=== PATIENT | female | born 1965 | race Caucasian/White ===

== ENCOUNTER 2020-08-28 14:00 | Outpatient (CLI) | payer OTHER, SELFPAY ==
--- NOTE | ~2020-08-28 | NM_ITS ---
EXAMINATION: NM thyroid scan w uptake DATE: 08/29/2020 15:23 INDICATION: Thyrotoxicosis. COMPARISON: Cervical spine MRI 12/28/2018 TECHNIQUE: 0.341 mCi I-123 was administered orally. Scintigraphic images of the thyroid gland were o btained at 24 hours. Thyroid uptake was calculated by the technologist. FINDINGS: The thyroid uptake is 18% (normal 10-30%), with the right lobe measuring 13% uptake and the left 6%. Relatively increased activity in right thyroid lobe correlates with a nodule by MRI, likely benign. IMPRESSION: 1. Normal 24-hour iodine uptake. 2. Hyperactive right thyroid nodule, likely benign. Reviewed, dictated and finalized at location A. [employer]
== END 2020-08-28 14:01 | disposition home or self-care (01) ==
PROVIDERS: PCP Internal Medicine; Visit Provider Internal Medicine
DX: E05.90 Thyrotoxicosis, unspecified without thyrotoxic crisis or storm (principal)
CPT/HCPCS: 78014; A9516

== ENCOUNTER → 2020-08-29 09:01 | Outpatient (CLI) | payer OTHER, SELFPAY ==
--- NOTE | ~2020-08-29 | DEXA_ITS ---
Bone Density Report Name: Ca Jaramillo Age: 54 Sex: Female Ethnicity: White Date of : 1965 Indication: postmenopausal; screening for osteoporosis; height loss; hysterectomy; Referring Provider: Jose Aggarwal Study: Bone densitometry was performed. Exam Date: August 29, 2020 Accession number: [id number] Bone Density: Region BMD T-score Z-score Classification AP Spine (L1-L4) 0.704 -3.1 -2.0 Osteoporosis Femoral Neck (Left) 0.686 -1.5 -0.4 Osteopenia Total Hip (Left) 0.901 -0.3 0.4 Normal Femoral Neck (Right) 0.670 -1.6 -0.5 Osteopenia Total Hip (Right) 0.890 -0.4 0.3 Normal Total Hip Mean 0.896 -0.4 0.4 Normal World Health Organization criteria for BMD impression classify patients as: Normal (T-score at or above -1.0), Osteopenia (T-score between -1.0 and -2.5), or Osteoporosis (T-score at or below -2.5). 10-year Fracture Risk: FRAX not reported because: Some T-score for Spine Total or Hip Total or Femoral Neck at or below -2.5 Clinical Information Provided by Patient: Has the following medical conditions: Hysterectomy Patient maximum height was 63 Menopause Age: 27 No regular weight bearing exercise Drinks caffeinated beverages Onset of menses at age 13 Number of children 0 Impression: The patient has osteoporosis, based on the Total Spine T-score. Discussion: HIGH RISK OF FRACTURE. BONE DENSITY IS UNDESIRABLY LOW AT ONE OR MORE SKELETAL SITES, CONSISTENT WITH OSTEOPOROSIS. ALSO, BONE DENSITY IS LOWER THAN EXPECTED FOR AGE AND SEX AT ONE OR MORE SKELETAL SITES; RECOMMEND A DILIGENT SEARCH FOR SECONDARY CAUSES OF BONE LOSS. This patient's lowest T-score meets the World Health Organization's (WHO) criteria for osteoporosis at one or more sites (T-score -2.5 or below). In untreated patients, the risk of osteoporotic fracture increases approximately two-fold for each 1.0 SD decrease in T-score. Low bone density is not the only risk factor for fracture; also consider factors such as patient's age, frailty or poor health, risk of falling, risk of injury, previous osteoporotic fracture, family history of osteoporosis, cigarette smoking, low body weight, etc. Not everyone with low bone mineral density has osteoporosis; osteomalacia and other metabolic bone disorders should also be considered. Patients who have osteoporosis should be evaluated for specific diseases and conditions (secondary causes) that may cause or contribute to bone loss. The [place] [employer]ocrinologists (AACE) and National Osteoporosis Foundation (NOF) recommend pharmacologic intervention for all postmenopausal women whose T-score is in this range. Also, this patient's bone mineral density is below the range considered normal for healthy age-, sex-, and race-matched controls at least one site (Z-score
== END ==
PROVIDERS: PCP Internal Medicine; Visit Provider Pain Medicine Interventional Pain Medicine
DX: Z78.0 Asymptomatic menopausal state (principal); M54.12 Radiculopathy, cervical region; G89.4 Chronic pain syndrome; M81.0 Age-related osteoporosis without current pathological fracture; M85.852 Other specified disorders of bone density and structure, left thigh; M85.851 Other specified disorders of bone density and structure, right thigh
CPT/HCPCS: 77080

== ENCOUNTER 2020-08-30 10:44 | Outpatient (CLI) | payer OTHER, SELFPAY ==
--- NOTE | ~2020-08-30 | US_ITS ---
EXAMINATION: US thyroid EXAM DATE: 08/30/2020 11:43 INDICATION: THYROTOXOCOSIS E05.90 - Thyrotoxicosis, unspecified without thyrotoxic crisis. TECHNIQUE: Multiple grayscale and Doppler images of the thyroid were obtained (by a technologist who performed the scan) and subsequently reviewed. Individual nodules and recommendations may be reporte d in accordance with TI-RADS system as designated by the 2017 ACR White Paper TI-RADS committee. The re is no prior study for comparison. FINDINGS: The right thyroid lobe measures 4.1 x 2.4 x 2.2 cm, the left measuring 3.8 x 1.4 x 1.1 cm. Mildly het erogeneous thyroid echogenicity. There are several thyroid nodules, subcentimeter on the left and not likely clinically significant. O n the right there is a nodule measuring 2.7 x 2.2 x 2.0 cm, mixed cystic and solid (1 point), isoecho ic (1 point), wider than tall, smooth margin, without echogenic foci, category TR2 for this nodule. IMPRESSION: 1. Thyroid nodules not likely clinically significant. Reviewed, dictated and finalized at location B. [employer] NEEDS TUTOR
== END 2020-08-30 10:45 | disposition home or self-care (01) ==
PROVIDERS: PCP Internal Medicine; Visit Provider Internal Medicine
DX: E05.90 Thyrotoxicosis, unspecified without thyrotoxic crisis or storm (principal)
CPT/HCPCS: 76536

== ENCOUNTER 2020-10-13 08:34 | Emergency (ER) | payer OTHER, SELFPAY ==
--- NOTE | 2020-10-15 14:55 | ED.SKABFB ---
HPI - Skin/Abscess/Foreign Bdy General Stated complaint: sore on R/leg Time Seen by Provider: 10/13/20 16:50 Source: patient Mode of arrival: ambulatory Limitations: no limitations History of Present Illness HPI narrative: Ca Jaramillo is a 54 yo female w PMH of HTN, osteoporosis, chronic pain and anxiety, spinal tumor, who has rash on anterior thigh, mild tenderness not itching, no history of MRSA Related Data Home Medications Medication Instructions Recorded Confirmed baclofen 20 mg tablet 20 mg PO DAILY tablet 02/05/20 09/17/20 hydrocodone 10 mg-acetaminophen 1 tablet PO BID tablet 02/05/20 09/17/20 325 mg tablet oxycodone-acetaminophen 10 mg-325 tablet PO ONCE tablet 02/05/20 09/17/20 mg tablet Allergies Allergy/AdvReac Type Severity Reaction Status Date / Time gabapentin Allergy Intermediate Hives Verified 09/17/20 13:40 Penicillins Allergy Intermediate Hives Verified 09/17/20 13:40 Sulfa (Sulfonamide Allergy Intermediate Hives Verified 09/17/20 13:40 Antibiotics) diphenhydramine Allergy Mild IV Verified 09/17/20 13:40 RESTLESS, PO OK prochlorperazine Allergy Mild IV Verified 09/17/20 13:40 RESTLESS, PO OK promethazine Allergy Mild IV Verified 09/17/20 13:40 RESTLESS, PO OK Quinolones Allergy Mild Hives Verified 09/17/20 13:40 prabotulinumtoxinA-xvfs AdvReac Severe anger Verified 09/17/20 13:40 ciprofloxacin AdvReac Unknown Nausea Verified 09/17/20 13:40 Review of Systems Review of Systems: Narrative: CONSTITUTIONAL: Denies fever, chills, sweats. EYES: Denies visual changes, redness, discharge. ENT: Denies rhinorrhea, congestion, sore throat, otalgia. CARDIOVASCULAR: Denies chest pain, palpitations, edema. RESPIRATORY: Denies dyspnea, wheezing, cough GASTROINTESTINAL: Denies abdominal pain, nausea, vomiting, diarrhea. GENITOURINARY: Denies dysuria, hematuria, abnormal discharge SKIN: Denies rash or itching. Rash on right anterior thigh NEUROLOGIC: Denies numbness, or focal weakness. PSYCHIATRIC: Denies anxiety or depression. [facility] Past Medical History Medical History Ectopic FH: cholecystectomy Smoke hypersensitivity Surgical History Surgical History H/O laparoscopy H/O: hysterectomy Family History Family History Other Diabetes mellitus Family history of cardiovascular disease Family history of osteoarthritis Hypertension Social History Social History Smoking status: Never smoker Second hand tobacco smoke exposure: No Alcohol intake: never Comments At time of signature, I agree with nursing past medical, surgical, social and family history. There is no relevant family history pertinent to the presenting complaint. Exam Narrative: Exam Narrative: GENERAL: This is a well-nourished, well-developed patient, in mild distress. HEAD: normocephalic, atraumatic. EYES: Sclera clear/white. Vision is grossly intact. EARS: External ears normal,. Hearing grossly intact. NOSE: External nose normal without nasal discharge, nares without redness, no rhinorrhea. THROAT: Mucous membranes moist, NECK: Neck supple, CARDIOVASCULAR: Regular rate and rhythm without murmurs, gallops, or rubs. RESPIRATORY: Clear to auscultation. Breath sounds equal bilaterally. No wheezes, rales, or rhonchi. GASTROINTESTINAL: Abdomen soft, non-tender, SKIN: warm, intact with red rash with areas of tender erythema on R anterior thigh NEURO: awake, alert, and oriented to person, place and time. There were no obvious focal neurologic abnormalities. Steady gait EXTREMITIES: Normal range of motion. BACK: Nontender without deformity Course Course Emergency Course: Rash to right thigh Appears to be MRSA discussed infectivity and treatment w
== END 2020-10-13 17:00 | disposition home or self-care (01) ==
LOC: EXPTROY 11-07 09:43
PROVIDERS: Emergency Provider Nurse Practitioner
DX: R21 Rash and other nonspecific skin eruption (principal); I10 Essential (primary) hypertension; M81.0 Age-related osteoporosis without current pathological fracture
CPT/HCPCS: 99213; G0463

== ENCOUNTER → 2020-11-28 14:56 | Outpatient (CLI) | payer OTHER, SELFPAY ==
--- NOTE | ~2020-11-28 | XR_ITS ---
EXAMINATION: XR lumbar spine 2-3V EXAM DATE: 11/28/2020 15:28 INDICATION: Radiculopathy. TECHNIQUE: Lumber spine frontal, lateral, lateral L5-S1 projections for interpretation. Comparison is made to prior examination from 01/04/2018. FINDINGS: Mild lumbar levoscoliosis. There is mild upper lumbar disc disease L1-2 and L2-3. The vert ebral body and disc heights are otherwise well maintained. There is mild to moderate lumbar facet art hropathy. Sacrum, sacroiliac joints, sacral arcuate lines are intact. Paraspinal soft tissue is unrem arkable. IMPRESSION: 1. Mild upper lumbar disc disease. 2. Mild to moderate facet arthropathy. 3. Mild levoscoliosis. Reviewed, dictated and finalized at location B. D ADOLESCENT PSYCHIATRIST
--- NOTE | ~2020-11-28 | XR_ITS ---
EXAMINATION: XR cervical spine 4-5V EXAM DATE: 11/28/2020 15:28 INDICATION: Radiculopathy. TECHNIQUE: Cervical spine frontal, lateral, lateral swimmers, and open-mouth odontoid projections. C omparison is made to prior examination from 01/04/2018. FINDINGS: There is interbody device C5-6 without subsidence. There is mild to moderate disc disease at the cervical levels above this. Overall mild to moderate cervical arthropathy. The odontoid proces s is intact. The lateral masses of C1 line up with C2. Prevertebral soft tissue and pre-dens space a re within normal limits. Lung apices are clear. IMPRESSION: Mild to moderate cervical spondylosis. Reviewed, dictated and finalized at location B. NS SERVICE CONDUCTOR
--- NOTE | ~2020-11-28 | XR_ITS ---
EXAMINATION: XR thoracic spine 3V EXAM DATE: 11/28/2020 15:28 INDICATION: Radiculopathy. TECHNIQUE: Frontal and lateral projections of the thoracic spine as well as lateral swimmers projecti on of the upper thoracic spine for interpretation. There is no prior study for comparison. FINDINGS: Mild mid thoracic disc disease. The vertebral bodies are aligned in the AP dimension. Ther e are no bony erosions identified. Paraspinal soft tissue is unremarkable. IMPRESSION: Mild mid thoracic spondylosis. Reviewed, dictated and finalized at location B. H RIB GRADER
== END ==
PROVIDERS: PCP Internal Medicine; Visit Provider Family Medicine
DX: M51.36 Other intervertebral disc degeneration, lumbar region (principal); M47.22 Other spondylosis with radiculopathy, cervical region; M47.24 Other spondylosis with radiculopathy, thoracic region
CPT/HCPCS: 72050; 72072; 72100

== ENCOUNTER 2021-04-14 11:08 | Emergency (ER) | payer OTHER, SELFPAY ==
[2021-04-14 11:24] VITALS: BP 98/71; PULSE 92; RESP 18; TEMP 36.1; O2SAT 97
--- NOTE | 2021-04-14 12:06 | ED.FEMALEGU ---
HPI - Female Genitourinary General Chief complaint: Urogenital-Female Stated complaint: UTI Time Seen by Provider: 04/14/21 11:55 Source: patient Mode of arrival: ambulatory Limitations: no limitations History of Present Illness HPI Narrative: Ca Jaramillo is a 59-year-old female with a PMH of chronic back pain, asthma, osteoporosis, blood pressure, depression, who comes with urinary frequency and dysuria and pain that started on Wednesday night and Wednesday morning and is not improved. Last night she said she was uncomfortable trying to sleep Related Data Home Medications Medication Instructions Recorded Confirmed hydrocodone 10 mg-acetaminophen 1 tablet PO BID tablet 02/05/20 04/14/21 325 mg tablet oxycodone-acetaminophen 10 mg-325 tablet PO ONCE tablet 02/05/20 02/26/21 mg tablet albuterol 90 mcg/actuation aerosol 90 mcg INHALATION DAILY 02/26/21 04/14/21 inhaler baclofen 20 mg tablet 20 mg PO TID PRN tablet 02/26/21 04/14/21 clobetasol 0.05 % topical cream 1 applic TOPICAL BID PRN 02/26/21 04/14/21 Allergies Allergy/AdvReac Type Severity Reaction Status Date / Time gabapentin Allergy Intermediate Hives Verified 09/17/20 13:40 Penicillins Allergy Intermediate Hives Verified 09/17/20 13:40 Sulfa (Sulfonamide Allergy Intermediate Hives Verified 09/17/20 13:40 Antibiotics) diphenhydramine Allergy Mild IV Verified 09/17/20 13:40 RESTLESS, PO OK prochlorperazine Allergy Mild IV Verified 09/17/20 13:40 RESTLESS, PO OK promethazine Allergy Mild IV Verified 09/17/20 13:40 RESTLESS, PO OK Quinolones Allergy Mild Hives Verified 09/17/20 13:40 pregabalin [From Lyrica] Allergy Mood Verified 02/26/21 08:54 Changes prabotulinumtoxinA-xvfs AdvReac Severe anger Verified 09/17/20 13:40 ciprofloxacin AdvReac Unknown Nausea Verified 09/17/20 13:40 Review of Systems Review of Systems: Narrative: CONSTITUTIONAL: Denies fever, chills, sweats. EYES: Denies visual changes, redness, discharge. ENT: Denies rhinorrhea, congestion, sore throat, otalgia. CARDIOVASCULAR: Denies chest pain, palpitations, edema. RESPIRATORY: Denies dyspnea, wheezing, cough GASTROINTESTINAL: Denies abdominal pain, nausea, vomiting, diarrhea. GENITOURINARY: Has dysuria, hematuria, abnormal discharge SKIN: Denies rash or itching. NEUROLOGIC: Denies numbness, or focal weakness. PSYCHIATRIC: Denies anxiety or depression. [facility] Past Medical History Medical History Age related osteoporosis Arthritis Chronic pain Ectopic FH: cholecystectomy Hypertension Migraine Smoke hypersensitivity Thyroid disorder Tumor Schwanoma Removed Surgical History Surgical History H/O laparoscopy H/O myomectomy H/O oophorectomy H/O: hysterectomy History of appendectomy History of back surgery Cervical Decompression 03/2012 History of laminectomy 10/2011 Family History Family History (Updated 02/26/21 @ 08:41 by Patti Moon, [facility]) Father Diabetes mellitus Heart disease Mother Acute myocardial infarction Heart disease Sibling Asthma Hypertension Grandparent Diabetes mellitus Other Family history of osteoarthritis Social History Social History Smoking status: Never smoker Second hand tobacco smoke exposure: No Alcohol intake: never Gender identity (if verbalized by the patient): Female Exam Narrative: Exam Narrative: GENERAL: This is a well-nourished, well-developed patient, in mild distress. HEAD: normocephalic, atraumatic. EYES: PERRL. Sclera clear/white. Vision is grossly intact. EARS: External ears normal, Hearing grossly intact. NOSE: External nose normal without nasal discharge, nares without redness, no rhinorrhea. THROAT: Mucous membranes moist, NECK: Neck supple, CARDIOVASCULAR: Regular rate
== END 2021-04-14 12:18 | disposition home or self-care (01) ==
PROVIDERS: Emergency Provider Nurse Practitioner; PCP Internal Medicine
DX: N30.00 Acute cystitis without hematuria (principal); M19.90 Unspecified osteoarthritis, unspecified site; I10 Essential (primary) hypertension
CPT/HCPCS: 81003; 87077; 87086; 87186; 99213; G0463

== ENCOUNTER → 2021-06-23 12:58 | Outpatient (CLI) | payer OTHER, SELFPAY ==
--- NOTE | ~2021-06-23 | US_ITS ---
EXAMINATION: US soft tissue LE DATE: 06/23/2021 13:20 INDICATION: Left upper thigh mass. TECHNIQUE: Multiple grayscale and Doppler ultrasound images of the left thigh were obtained. COMPARISON: None FINDINGS: There are 2 subcutaneous masses in the left upper thigh measuring 1.1 x 0.8 x 1.1 cm and 2. 3 x 1.0 x 2.5 cm. The masses are isoechoic to normal subcutaneous fat with echotexture similar to sub cutaneous fat and demonstrate incomplete hypoechoic rims. IMPRESSION: 1. Two subcutaneous masses in the left upper thigh with the larger measuring 2.5 cm, likely lipomas. Reviewed, dictated and finalized at location A. IMPRESSION: 1. Two subcutaneous masses in the left upper thigh with the larger measuring 2. 5 cm, likely lipomas.
== END ==
PROVIDERS: PCP Internal Medicine; Visit Provider Nurse Practitioner
DX: R22.42 Localized swelling, mass and lump, left lower limb (principal)
CPT/HCPCS: 76882

== ENCOUNTER 2021-08-04 00:03 | Day surgery (SDC) | payer OTHER, SELFPAY ==
[2021-07-18 14:00] VITALS: BMI 35.6
[2021-08-04 06:58] VITALS: BMI 36.2
[2021-08-04] MEDS: LACTATED RINGERS 1,000 ML 150 ML IV CONT (07:36)
--- NOTE | 2021-08-04 07:37 | WPDANESEPPF ---
Anes - Initial Pre Proc Eval Procedure: Operation Date: 08/04/21 08:00 Proposed Procedures p Esophagogastroduodenoscopy & Screening Colonoscopy - Dirk Vazquez MD Date/Time: 08/04/21 07:37 Surgeon: Dirk Vazquez MD Pre Op Diagnosis: hall's esophagus, hx of colon polyps Patient Data Age: 55 Gender: F Height: 1.57 m Weight: 89.9 kg Allergies Allergy/AdvReac Type Severity Reaction Status Date / Time gabapentin Allergy Intermediate Hives Verified 08/04/21 06:55 Penicillins Allergy Intermediate Hives Verified 08/04/21 06:55 Sulfa (Sulfonamide Allergy Intermediate Hives Verified 08/04/21 06:55 Antibiotics) diphenhydramine Allergy Mild IV Verified 08/04/21 06:55 RESTLESS, PO OK prochlorperazine Allergy Mild IV Verified 08/04/21 06:55 RESTLESS, PO OK promethazine Allergy Mild IV Verified 08/04/21 06:55 RESTLESS, PO OK Quinolones Allergy Mild Hives Verified 08/04/21 06:55 pregabalin [From Lyrica] Allergy Mood Verified 08/04/21 06:55 Changes prabotulinumtoxinA-xvfs AdvReac Severe anger Verified 08/04/21 06:55 ciprofloxacin AdvReac Unknown Nausea Verified 08/04/21 06:55 Home Medications Medication Instructions Recorded Confirmed Type diclofenac sodium 1 % topical gel 2 gm TOPICAL QID #100 gm 09/20/19 07/18/21 Rx hydrocodone 10 mg-acetaminophen 1 tablet PO BID tablet 02/05/20 07/18/21 History 325 mg tablet oxycodone-acetaminophen 10 mg-325 1 tablet PO ONCE tablet 02/05/20 07/18/21 History mg tablet montelukast 10 mg tablet 10 mg PO DAILY 90 Days #90 tablet 05/02/20 07/18/21 Rx ondansetron HCl 8 mg tablet 8 mg PO Q12H #180 tablet 12/28/20 07/18/21 Rx albuterol 90 mcg/actuation aerosol 90 mcg INHALATION DAILY 02/26/21 07/18/21 History inhaler clobetasol 0.05 % topical cream 1 applic TOPICAL BID PRN 02/26/21 07/18/21 History alendronate 70 mg tablet 70 mg PO WEEKLY 90 Days #13 tablet 03/13/21 07/18/21 Rx carvedilol 25 mg tablet 25 mg PO Q12H #180 tablet 03/13/21 07/18/21 Rx duloxetine 20 mg capsule,delayed 40 mg PO DAILY #180 cap 03/13/21 07/18/21 Rx release losartan 100 mg tablet 100 mg PO DAILY #90 tablet 03/13/21 07/18/21 Rx rosuvastatin 20 mg tablet 20 mg PO DAILY #90 tablet 03/13/21 07/18/21 Rx phenazopyridine [Pyridium] 200 mg PO TID PRN #6 tablet 04/14/21 07/18/21 Rx clonidine 0.1 mg/24 hr weekly See Rx Instructions .ROUTE 05/12/21 07/18/21 Rx transdermal patch .COMPLEX #12 patch mupirocin 2 % topical ointment 1 applic TOPICAL BID #30 g 06/16/21 07/18/21 Rx hydrochlorothiazide 25 mg tablet 25 mg PO DAILY #90 tablet 07/07/21 07/18/21 Rx dicyclomine 10 mg capsule See Rx Instructions .ROUTE 07/09/21 07/18/21 Rx .COMPLEX #90 cap baclofen 10 mg PO TID PRN 07/18/21 07/18/21 History cholecalciferol (vitamin D3) 250 mcg PO WEEKLY 07/18/21 07/18/21 History Patient hx anesthesia problems: none Family hx anesthesia problems: none Results Review: All pre-operative results and documents have been reviewed as part of the pre-operative evaluation. [facility] Past Medical History Medical History Age related osteoporosis Arthritis Chronic pain Ectopic FH: cholecystectomy Hypertension Migraine Smoke hypersensitivity Thyroid disorder Tumor Schwanoma Removed Surgical History Surgical History H/O laparoscopy H/O myomectomy H/O oophorectomy H/O: hysterectomy History of appendectomy History of back surgery Cervical Decompression 03/2012 History of laminectomy 10/2011 Family History Family History Father Diabetes mellitus Heart disease Mother Acute myocardial infarction Heart disease Sibling Asthma Hypertension Grandparent Diabetes mellitus Other Family history of osteoarthritis Social History Social History (Reviewed 08/04/21 @ 07:
--- NOTE | 2021-08-04 07:58 | PM.HPGS ---
History of Present Illness History of Present Illness Consent: Risks, benefits, and alternatives have been discussed and questions answered. Patient agrees to proceed with procedure. Chief complaint: hall's esophagus, hx of colon polyps Narrative: Ca Jaramillo is a 55 year old female with dysphagia and hall's, last egd 5 years ago, she is not using ppi. Also last colonoscopy with polyp 5 years ago. Review of Systems Constitutional: Constitutional: Denies headache(s) and Denies weakness Eyes: Eyes: Denies blurry vision ENT: Reports Normal hearing present, Denies headache(s) and Denies neck pain Cardiovascular: Cardiovascular: Denies chest pain and Denies dyspnea Respiratory: Respiratory: Denies dyspnea Gastrointestinal: Gastrointestinal: Reports no additional gastrointestinal complaints Genitourinary: Genitourinary: Denies dysuria Musculoskeletal: Musculoskeletal: Denies neck pain Integumentary/Breasts: Skin/Breast: Denies dry skin Neurologic: Reports Normal hearing present, Denies headache(s) and Denies weakness Psychiatric: Psychiatric: Denies anxiety Endocrine: Endocrine: Denies change in body appearance Hematologic/Lymphatic: Hematologic/Lymphatic: Denies easy bleeding Allergic/Immunologic: Allergic/Immunologic: Denies urticaria PMFSH Past Medical History Medical History (Updated 08/04/21 @ 07:59 by Dirk Vazquez MD) Age related osteoporosis Arthritis Chronic pain Dysphagia Ectopic FH: cholecystectomy Hypertension Migraine Smoke hypersensitivity Thyroid disorder Tumor Schwanoma Removed Surgical History Surgical History H/O laparoscopy H/O myomectomy H/O oophorectomy H/O: hysterectomy History of appendectomy History of back surgery Cervical Decompression 03/2012 History of laminectomy 10/2011 Family History Family History Father Diabetes mellitus Heart disease Mother Acute myocardial infarction Heart disease Sibling Asthma Hypertension Grandparent Diabetes mellitus Other Family history of osteoarthritis Social History Social History Smoking status: Never smoker Second hand tobacco smoke exposure: No Alcohol intake: never Living arrangements: with family Gender identity (if verbalized by the patient): Female Spiritual care concerns: No Meds Home Medications and Allergies Home Medications Medication Instructions Recorded Confirmed Type diclofenac sodium 1 % topical gel 2 gm TOPICAL QID #100 gm 09/20/19 07/18/21 Rx hydrocodone 10 mg-acetaminophen 1 tablet PO BID tablet 02/05/20 07/18/21 History 325 mg tablet oxycodone-acetaminophen 10 mg-325 1 tablet PO ONCE tablet 02/05/20 07/18/21 History mg tablet montelukast 10 mg tablet 10 mg PO DAILY 90 Days #90 tablet 05/02/20 07/18/21 Rx ondansetron HCl 8 mg tablet 8 mg PO Q12H #180 tablet 12/28/20 07/18/21 Rx albuterol 90 mcg/actuation aerosol 90 mcg INHALATION DAILY 02/26/21 07/18/21 History inhaler clobetasol 0.05 % topical cream 1 applic TOPICAL BID PRN 02/26/21 07/18/21 History alendronate 70 mg tablet 70 mg PO WEEKLY 90 Days #13 tablet 03/13/21 07/18/21 Rx carvedilol 25 mg tablet 25 mg PO Q12H #180 tablet 03/13/21 07/18/21 Rx duloxetine 20 mg capsule,delayed 40 mg PO DAILY #180 cap 03/13/21 07/18/21 Rx release losartan 100 mg tablet 100 mg PO DAILY #90 tablet 03/13/21 07/18/21 Rx rosuvastatin 20 mg tablet 20 mg PO DAILY #90 tablet 03/13/21 07/18/21 Rx phenazopyridine [Pyridium] 200 mg PO TID PRN #6 tablet 04/14/21 07/18/21 Rx clonidine 0.1 mg/24 hr weekly See Rx Instructions .ROUTE 05/12/21 07/18/21 Rx transdermal patch .COMPLEX #12 patch mupirocin 2 % topical ointment 1 applic TOPICAL BID #30 g 06/16/21 07/18/21 Rx hydrochlorothiazide 25 mg tablet 25 mg PO DAILY #90 tablet 07/07/21
[2021-08-04 08:38] VITALS: BP 116/79; PULSE 113; RESP 21; O2SAT 92
[2021-08-04 08:48] VITALS: BP 109/79; PULSE 108; RESP 20; O2SAT 92
[2021-08-04 08:58] VITALS: BP 136/98; PULSE 103; RESP 32; O2SAT 96
--- NOTE | 2021-08-04 09:06 | SUR.OPER ---
EGD START 809, END 816 COLONOSCOPY START 822, END 832
== END 2021-08-04 09:32 | disposition home or self-care (01) ==
PROVIDERS: PCP Internal Medicine; Visit Provider Internal Medicine Gastroenterology
PROC: 0DJ08ZZ Inspection of Upper Intestinal Tract, Via Natural or Artificial Opening Endoscopic (ICD-10-PCS; CPT 43235; principal; 2021-08-04 08:00)
DX: Z12.11 Encounter for screening for malignant neoplasm of colon (principal); K25.3 Acute gastric ulcer without hemorrhage or perforation; K22.70 Barrett's esophagus without dysplasia; D12.2 Benign neoplasm of ascending colon; R13.19 Other dysphagia; K20.90 Esophagitis, unspecified without bleeding; K44.9 Diaphragmatic hernia without obstruction or gangrene; M81.0 Age-related osteoporosis without current pathological fracture; M19.90 Unspecified osteoarthritis, unspecified site; I10 Essential (primary) hypertension; E07.9 Disorder of thyroid, unspecified; Z79.51 Long term (current) use of inhaled steroids; E66.9 Obesity, unspecified; Z68.36 Body mass index [BMI] 36.0-36.9, adult
CPT/HCPCS: 45385; 43239; 87081; 88305; J2001; J2704; J7120

== ENCOUNTER 2021-09-04 13:05 | Emergency (ER) | payer OTHER, SELFPAY ==
[2021-09-04 13:13] VITALS: BP 116/57; PULSE 99; RESP 18; TEMP 35.7; O2SAT 97
--- NOTE | 2021-09-04 13:18 | ED.URI ---
HPI - URI/Sore Throat General Chief Complaint: Upper Respiratory Infection Stated Complaint: Bilateral Ear Pain,Sinus Source: patient and RN notes reviewed Mode of arrival: ambulatory History of Present Illness HPI Narrative: This is a 55-year-old female who presents to urgent care with complaints of congestion, bilateral ear pain and ache, it worsened with position change, chronic cough with yellow sputum that has lasted for approximately 3 weeks. Patient notes that she has a sinus infection or bronchitis yearly. She did not notify her primary care physician of her condition. Patient notes that she took DayQuil with Sudafed at home with no relief. Patient notes that she has been applying heat packs to both ears to relieve the pain. She describes the ear pain as congestion to her ears. She also describes some shortness of breath. The patient denies CP, palpitation, extremity numbness, lightheadedness, dizziness, constipation, diarrhea, chills, or fever. MD elicited complaint: cough, rhinorrhea, nasal congestion and sinus pain Related Data Home Medications Medication Instructions Recorded Confirmed hydrocodone 10 mg-acetaminophen 1 tablet PO BID tablet 02/05/20 09/04/21 325 mg tablet albuterol 90 mcg/actuation aerosol 90 mcg INHALATION DAILY 02/26/21 09/04/21 inhaler clobetasol 0.05 % topical cream 1 applic TOPICAL BID PRN 02/26/21 09/04/21 baclofen 20 mg PO TID PRN 07/18/21 09/04/21 cholecalciferol (vitamin D3) 250 mcg PO WEEKLY 07/18/21 09/04/21 dicyclomine 10 mg PO DAILY 09/04/21 09/04/21 ondansetron HCl 8 mg PO Q12H PRN 09/04/21 09/04/21 Allergies Allergy/AdvReac Type Severity Reaction Status Date / Time gabapentin Allergy Intermediate Hives Verified 09/04/21 13:25 Penicillins Allergy Intermediate Hives Verified 09/04/21 13:25 Sulfa (Sulfonamide Allergy Intermediate Hives Verified 09/04/21 13:25 Antibiotics) diphenhydramine Allergy Mild IV Verified 09/04/21 13:25 RESTLESS, PO OK prochlorperazine Allergy Mild IV Verified 09/04/21 13:25 RESTLESS, PO OK promethazine Allergy Mild IV Verified 09/04/21 13:25 RESTLESS, PO OK Quinolones Allergy Mild Hives Verified 09/04/21 13:25 prabotulinumtoxinA-xvfs AdvReac Severe anger Verified 09/04/21 13:25 ciprofloxacin AdvReac Intermediate Nausea and Verified 09/04/21 13:25 Vomiting pregabalin [From Lyrica] AdvReac Intermediate Mood Verified 09/04/21 13:25 Changes Review of Systems Review of Systems: A 14 organ system Review of Systems was performed and pertinent positives included in the HPI, otherwise remaining ROS is negative. [facility] Past Medical History Medical History Age related osteoporosis Arthritis Chronic pain Dysphagia Ectopic FH: cholecystectomy Hypertension Migraine Smoke hypersensitivity Thyroid disorder Tumor Schwanoma Removed Surgical History Surgical History H/O laparoscopy H/O myomectomy H/O oophorectomy H/O: hysterectomy History of appendectomy History of back surgery Cervical Decompression 03/2012 History of laminectomy 10/2011 Family History Family History Father Diabetes mellitus Heart disease Mother Acute myocardial infarction Heart disease Sibling Asthma Hypertension Grandparent Diabetes mellitus Other Family history of osteoarthritis Social History Social History Smoking status: Never smoker Second hand tobacco smoke exposure: No Alcohol intake: never Gender identity (if verbalized by the patient): Female Spiritual care concerns: No Exam Narrative: GENERAL: This is a well-nourished, well-developed patient, in no apparent distress. HEAD: normocephalic, atraumatic. Frontal tenderness EYES: PERRL. Sclera clear/white. V
== END 2021-09-04 13:48 | disposition home or self-care (01) ==
PROVIDERS: Emergency Provider Nurse Practitioner; PCP Internal Medicine
DX: J01.11 Acute recurrent frontal sinusitis (principal); M81.0 Age-related osteoporosis without current pathological fracture; M19.90 Unspecified osteoarthritis, unspecified site; I10 Essential (primary) hypertension; E07.9 Disorder of thyroid, unspecified
CPT/HCPCS: 99213; G0463

== ENCOUNTER → 2022-03-24 14:28 | Outpatient (CLI) | payer OTHER, SELFPAY ==
--- NOTE | ~2022-03-24 | XR_ITS ---
EXAMINATION:XR cervical spine 4-5V DATE: 03/24/2022 15:19 INDICATION: Cervical radiculopathy TECHNIQUE: AP, lateral, lateral swimmers and odontoid views of the cervical spine are provided. COMPARISON: 11/28/2020 FINDINGS: Alignment is normal. The odontoid is intact. No fracture is identified. The vertebral body heights are maintained. An interbody device is present at C5-6. There is mild facet and uncovertebral joint osteoarthritis. Prevertebral soft tissues are normal. IMPRESSION: 1. Mild cervical spondylosis without acute findings or significant interval change. Reviewed, dictated and finalized at location F. IMPRESSION: 1. Mild cervical spondylosis without acute findings or significant interval curtis e.
--- NOTE | ~2022-03-24 | XR_ITS ---
EXAMINATION: XR lumbar spine 2-3V DATE: 03/24/2022 15:19 INDICATION: Lumbar radiculopathy TECHNIQUE: Anteroposterior and lateral views of the lumbar spine, and cone-down lateral view of the l umbosacral junction were obtained. COMPARISON: 11/28/2020 FINDINGS: There is no fracture, dislocation, or subluxation. The vertebral body heights are normal. T here is unchanged mild loss of intervertebral disc space height at L1-2 and L2-3. There is moderate f acet osteoarthritis. The bowel gas pattern is normal. Small degenerative osteophytes project from the anterior endplates of multiple vertebral bodies. IMPRESSION: 1. Mild lumbar spondylosis without acute findings or significant interval change. Reviewed, dictated and finalized at location F. IMPRESSION: 1. Mild lumbar spondylosis without acute findings or significant interval garcia angelo
--- NOTE | ~2022-03-24 | XR_ITS ---
EXAMINATION: XR thoracic spine 2V DATE: 03/24/2022 15:19 INDICATION: Thoracic radiculopathy TECHNIQUE: AP and lateral views of the thoracic spine are obtained. COMPARISON: 11/28/2020 FINDINGS: There is mild exaggeration of the thoracic kyphosis. The vertebral body heights are [place]. There is chronic mild loss of intervertebral disc space height in the midthoracic spine. The bon es are osteopenic which limits the sensitivity for fracture however none is seen. Bone alignment is n ormal. Small degenerative osteophytes project from the anterior endplates of multiple vertebral jennifer s. IMPRESSION: 1. Mild thoracic spondylosis without acute findings or significant interval change. Reviewed, dictated and finalized at location F. IMPRESSION: 1. Mild thoracic spondylosis without acute findings or significant interval curtis nge.
== END ==
PROVIDERS: PCP Internal Medicine
DX: M47.22 Other spondylosis with radiculopathy, cervical region (principal); M47.24 Other spondylosis with radiculopathy, thoracic region; M47.26 Other spondylosis with radiculopathy, lumbar region
CPT/HCPCS: 72050; 72070; 72100

== ENCOUNTER → 2022-05-19 10:41 | Outpatient (CLI) | payer OTHER, SELFPAY ==
--- NOTE | ~2022-05-19 | MM_ITS ---
EXAMINATION: MM screening tom BI w maida HISTORY: Screening mammogram TECHNIQUE: Craniocaudal and mediolateral oblique 3-D tomosynthesis images were obtained and synthetic 2-D images were generated. CAD analysis was submitted and interpreted. COMPARISON: 03/30/2016, 02/20/2015 bilateral digital screening mammogram examinations BREAST PARENCHYMAL COMPOSITION: The breasts are almost entirely fatty. FINDINGS: There is no evidence of suspicious mass, calcification, or architectural distortion to sugg est malignancy in either breast. There has been no suspicious interval change. IMPRESSION: 1. No mammographic evidence of malignancy. 2. Recommend routine screening mammography in one year. BI-RADS Category 1: Negative Reviewed, dictated and finalized at location A.
== END ==
PROVIDERS: PCP Internal Medicine; Visit Provider Nurse Practitioner
DX: Z12.31 Encounter for screening mammogram for malignant neoplasm of breast (principal)
CPT/HCPCS: 77063; 77067

== ENCOUNTER 2022-05-19 12:13 | Outpatient (CLI) | payer OTHER, SELFPAY ==
[2022-05-19 12:35] LABS: Basophils Absolute Auto 0.1 K/mm3 (0.0-0.1); Basophils Percent Auto 0.6 % (0.2-1.2); Eosinophils Absolute Auto 0.3 K/mm3 (0-0.3); Eosinophils Percent Auto 3.4 % (0-4.4); Hematocrit 45.7 % (37.0-47.0); Hemoglobin 14.2 g/dL (12.0-15.0); Immature Granulocyte Absolute 0.02 K/mm3 (0.00-0.031); Immature Granulocyte Percent A 0.2 % (0-0.5); Mean Corpuscular HGB Conc 31.1 g/dl (32-36); Mean Corpuscular Hemoglobin 29.5 pg (26-34); Mean Corpuscular Volume 94.8 fl (80-100); Mean Platelet Volume 8.9 fl (7.4-10.4); Monocytes Absolute Auto 1.1 K/mm3 (0.1-0.6); Monocytes Percent Auto 10.5 % (2.6-8.5); Neutrophils Absolute Auto 5.3 K/mm3 (1.3-6.7); Neutrophils Percent Auto 53.3 % (45.5-73.1); Platelet Count Result 392 k/mm3 (150-375); Red Blood Count 4.82 M/mm3 (4.2-5.4); Red Cell Distribution Width 13.2 % (11.5-14.5)
[2022-05-19 13:10] LABS: Vitamin D 25 Hydroxy 51.7 ng/mL
== END 2022-05-19 12:14 | disposition home or self-care (01) ==
PROVIDERS: PCP Internal Medicine; Visit Provider Nurse Practitioner
DX: D75.839 Thrombocytosis, unspecified (principal); E55.9 Vitamin D deficiency, unspecified
CPT/HCPCS: 36415; 82306; 85025

== ENCOUNTER → 2022-06-23 12:26 | Outpatient (CLI) | payer OTHER, SELFPAY ==
--- NOTE | ~2022-06-23 | MR_ITS ---
EXAMINATION: MR lumbar spine wo con, MR thoracic spine wo con DATE: 06/23/2022 13:37 INDICATION: Thoracic and lumbosacral radiculopathy TECHNIQUE: 1. Magnetic resonance imaging (MRI) of the thoracic spine was performed without intravenous contrast. Sagittal localizer T1-weighted FSE of the cervicothoracic spine was obtained. Thoracic spine sequenc es included sagittal T2-weighted FSE, sagittal T1-weighted SE, Sagittal T2-weighted FS FSE, and axial T2-weighted FSE. 2. Magnetic resonance imaging (MRI) of the lumbar spine was performed without intravenous contrast. S equences included sagittal T2-weighted FSE, sagittal T2-weighted FS FSE, sagittal T1-weighted FSE, an d axial T2-weighted FSE. COMPARISON: None FINDINGS: Thoracic spine: Anterior fusion evident at C5-C6 on the global security architect topogram. Mild thoracic kyphosis with a couple mid thor acic chronic compression fractures with 20% anterior vertebral body height loss at T7 and <20% anteri or vertebral body height loss at T8. Small Schmorl's nodes along the inferior endplates of both verte bral bodies. Normal bone marrow signal. Moderate disc height loss at T5-T6 through T8-T9. Mild disc h eight loss at T2-T3 through T4-T5 and at T9-T10. Small central disc protrusion without significant ce ntral canal stenosis at C7-T1. Small bilateral subarticular zone disc protrusions at T6-T7 with minim al central canal stenosis. Left paracentral disc protrusion at T7-T8 resulting in mild central canal stenosis and indenting the left ventral surface of the cord. Mild diffuse disc bulge with minimal jeremi tral canal stenosis at T8-T9. Annular fissure and small left subarticular zone disc extrusion at T9-T 10 with disc material extending 4 mm cephalad to the level of the inferior endplate of T9. Minimal di sc bulges without central canal stenosis at T10-T11 and T11-T12. Mild to moderate thoracic facet oste oarthritis most prominent at C7-T1 through T3-T4 and at T10-T11. No significant neural foraminal sten osis There is normal spinal cord signal. The paravertebral soft tissues are unremarkable. Lumbar spine: Clinical history lumbar levocurvature. Sagittal alignment is normal. Vertebral body heights are lila l. Mild fibrofatty degenerative endplate changes at the anterior superior endplates of L2 and L3 ericka g with a few scattered small T1 hyperintense hemangiomas. Marrow signal is otherwise normal. Tarlov c ysts at the left and right S2 neural foramen. Moderate disc height loss at L1-L2 and mild disc heigh t loss at T12-L1 and L2-L3 through L4-L5. The conus medullaris terminates at L1-L2. There is normal s ignal in the caudal spinal cord. Paravertebral soft tissues are unremarkable. The following disc leve ls are specifically discussed: T12-L1: Annular fissure and small central disc extrusion with disc material extending 4 mm cephalad t o the level of the inferior endplate of L1. There is mild bilateral facet joint osteoarthritis. There is no neural foraminal stenosis. There is mild central canal stenosis. L1-L2: Annular fissure and moderate sized left paracentral disc extrusion with disc material extendin g up to 5 mm cephalad to the level of the inferior endplate of L1. There is mild left facet joint ost eoarthritis. The right-sided inferior articular process of L1 is absent. There is no neural foraminal stenosis. There is mild central canal stenosis. L2-L3: Annular fissure and moderate size central disc extrusion. There is mild bilateral facet joint osteoarthritis. There is minimal right neural foraminal stenosis. There is mild central canal stenosi s. L3-L4: Annular fissure and left foraminal zone disc extrusion. There is mild bilateral facet joint os teoarthritis. There is altered left neural foraminal stenosis. There is no central canal stenosis. L4-L5: The disc does not extend beyond the endplate margin. There is mild bilateral facet joint osteo arthritis. Ther
== END ==
PROVIDERS: PCP Internal Medicine; Visit Provider Pain Medicine Interventional Pain Medicine
DX: M47.24 Other spondylosis with radiculopathy, thoracic region (principal)
CPT/HCPCS: 72146; 72148

== ENCOUNTER 2022-08-11 16:19 | Outpatient (CLI) | payer OTHER, SELFPAY ==
[2022-08-11 16:43] LABS: Basophils Absolute Auto 0.1 K/mm3 (0.0-0.1); Basophils Percent Auto 0.6 % (0.2-1.2); Eosinophils Absolute Auto 0.4 K/mm3 (0-0.3); Eosinophils Percent Auto 4.7 % (0-4.4); Hematocrit 43.4 % (37.0-47.0); Hemoglobin 13.6 g/dL (12.0-15.0); Immature Granulocyte Absolute 0.01 K/mm3 (0.00-0.031); Immature Granulocyte Percent A 0.1 % (0-0.5); Lymphocytes Absolute Auto 2.74 K/mm3 (0.9-3.2); Lymphocytes Percent Auto 31.3 % (18.3-44.2); Mean Corpuscular HGB Conc 31.3 g/dl (32-36); Mean Corpuscular Hemoglobin 30.1 pg (26-34); Mean Platelet Volume 8.9 fl (7.4-10.4); Monocytes Percent Auto 10.8 % (2.6-8.5); Neutrophils Absolute Auto 4.6 K/mm3 (1.3-6.7); Neutrophils Percent Auto 52.5 % (45.5-73.1); Platelet Count Result 407 k/mm3 (150-375); Red Blood Count 4.52 M/mm3 (4.2-5.4); Red Cell Distribution Width 13.1 % (11.5-14.5); White Blood Count 8.8 K/mm3 (4.5-10.0)
[2022-08-11 16:56] LABS: Alanine Aminotransferase 29 U/L (6-35); Albumin Level 4.3 g/dL (3.5-5.1); Alkaline Phosphatase 48 U/L (38-126); Anion Gap 8 mmol/L (8-16); Aspartate Amino Transferase 31 U/L (14-36); Bilirubin,Total 0.4 mg/dL (0.2-1.3); Blood Urea Nitrogen 10 mg/dL (7-17); CRP < 0.5 mg/dL (<1.0); Calcium 9.3 mg/dL (8.4-10.2); Carbon Dioxide 29 mmol/L (22-30); Chloride 104 mmol/L (98-107); Estimated Glomerular Filt Rate > 60; Glucose 118 mg/dL (65-110); Potassium 4.1 mmol/L (3.4-5.0); Sodium 141 mmol/L (137-145)
[2022-08-11 17:29] LABS: Erythrocyte Sedimentation Rate 13 mm/hr (0-20)
== END 2022-08-11 16:20 | disposition home or self-care (01) ==
LOC: ANHLAB 16:22
PROVIDERS: PCP Internal Medicine; Visit Provider Internal Medicine Hematology & Oncology
DX: D75.838 Other thrombocytosis (principal)
CPT/HCPCS: 36415; 80053; 85025; 85652; 86140

== ENCOUNTER → 2022-09-01 13:10 | Outpatient (CLI) | payer OTHER, SELFPAY ==
--- NOTE | ~2022-09-01 | DEXA_ITS ---
Bone Density Report Name: JANICE NIX Age: 56 Sex: Female Ethnicity: White Date of : 1965 Indication: postmenopausal osteoporosis; monitoring treatment; height loss; prior fracture; hysterectomy; Referring Provider: Ragini Black Study: Bone densitometry was performed. Exam Date: September 01, 2022 Accession number: [id number] Bone Density: Region BMD T-score Z-score Classification AP Spine (L1-L4) 0.763 -2.6 -1.3 Osteoporosis Femoral Neck (Left) 0.731 -1.1 0.1 Osteopenia Total Hip (Left) 0.851 -0.7 0.1 Normal Femoral Neck (Right) 0.650 -1.8 -0.6 Osteopenia Total Hip (Right) 0.877 -0.5 0.3 Normal Total Hip Mean 0.864 -0.6 0.2 Normal World Health Organization criteria for BMD impression classify patients as: Normal (T-score at or above -1.0), Osteopenia (T-score between -1.0 and -2.5), or Osteoporosis (T-score at or below -2.5). 10-year Fracture Risk: FRAX not reported because: Some T-score for Spine Total or Hip Total or Femoral Neck at or below -2.5 Prior hip or vertebral fracture Treated for osteopor Previous Exams: Region Exam Age BMD T-score BMD Change BMD Change Date g/cm2 vs Baseline vs Previous AP Spine(L1-L4) 09/01/2022 56 0.763 -2.6 0.059* 0.059* 08/29/2020 54 0.704 -3.1 Total Hip(Left) 09/01/2022 56 0.851 -0.7 -0.050* -0.050* 08/29/2020 54 0.901 -0.3 Total Hip(Right) 09/01/2022 56 0.877 -0.5 -0.013 -0.013 08/29/2020 54 0.890 -0.4 *Denotes significance at 95% confidence level, LSC for AP Spine = 0.022 g/cm2, LSC for Total Hip = 0.027 g/cm2 Clinical Information Provided by Patient: Have had a previous hip or vertebral fracture Has had a low trauma fracture Is being treated for osteoporosis Has used the following medications: Fosamax (i.e. alendronate), Vitamin D Has the following medical conditions: Hysterectomy, IBS Patient maximum height was 63 Menopause Age: 27 No regular weight bearing exercise Drinks caffeinated beverages Onset of menses at age 13 Number of children 0 Impression: The patient has established osteoporosis, based on the Total Spine T-score and the existence of a prior fracture. The patient has risk factors, including: previous fracture. The BMD for the Total Hip(Left) decreased, changing by -0.050 since the last DXA exam. Discussion: SIGNIFICANT BONE LOSS OBSERVED. Adherence to therapy (including calcium and vitamin D intake)
== END ==
PROVIDERS: PCP Nurse Practitioner; Visit Provider Internal Medicine
DX: Z78.0 Asymptomatic menopausal state (principal); M81.0 Age-related osteoporosis without current pathological fracture; M85.852 Other specified disorders of bone density and structure, left thigh; M85.851 Other specified disorders of bone density and structure, right thigh
CPT/HCPCS: 77080

== ENCOUNTER 2022-09-07 00:50 | Day surgery (SDC) | payer OTHER, SELFPAY ==
[2022-08-28 09:42] VITALS: BMI 36.6
[2022-09-07 11:13] VITALS: BP 140/84; PULSE 79; RESP 17; TEMP 36.2; O2SAT 96; BMI 36.7
[2022-09-07] MEDS: LACTATED RINGERS 1,000 ML 150 ML IV CONT (11:20)
--- NOTE | 2022-09-07 12:35 | WPDANESEPPF ---
Anes - Initial Pre Proc Eval Procedure: Operation Date: 09/07/22 12:30 Proposed Procedures p Esophagogastroduodenoscopy - Dirk Vazquez MD Date/Time: 09/07/22 12:35 Surgeon: Dirk Vazquez MD Pre Op Diagnosis: barretts esophagus Patient Data Age: 56 Gender: F Height: 1.57 m Weight: 91.1 kg Last Vital Signs Temp 97.2 F L 09/07/22 11:13 Pulse 79 09/07/22 11:13 Resp 17 09/07/22 11:13 BP 140/84 09/07/22 11:13 Pulse Ox 96 09/07/22 11:13 O2 Del Method Room Air 09/07/22 11:13 Allergies Allergy/AdvReac Type Severity Reaction Status Date / Time gabapentin Allergy Intermediate Hives Verified 09/07/22 11:12 Penicillins Allergy Intermediate Hives Verified 09/07/22 11:12 Sulfa (Sulfonamide Allergy Intermediate Hives Verified 09/07/22 11:12 Antibiotics) diphenhydramine Allergy Mild IV Verified 09/07/22 11:12 RESTLESS, PO OK prochlorperazine Allergy Mild IV Verified 09/07/22 11:12 RESTLESS, PO OK promethazine Allergy Mild IV Verified 09/07/22 11:12 RESTLESS, PO OK Quinolones Allergy Mild Hives Verified 09/07/22 11:12 prabotulinumtoxinA-xvfs AdvReac Severe anger Verified 09/07/22 11:12 ciprofloxacin AdvReac Intermediate Nausea and Verified 09/07/22 11:12 Vomiting pregabalin [From Lyrica] AdvReac Intermediate Mood Verified 09/07/22 11:12 Changes Home Medications Medication Instructions Recorded Confirmed Type diclofenac sodium 1 % topical gel 2 gm topical QID #100 grams 09/20/19 09/07/22 Rx (Voltaren) hydrocodone 10 mg-acetaminophen 1 tablet PO BID 02/05/20 09/07/22 History 325 mg tablet clobetasol 0.05 % topical cream 1 applic topical BID PRN Acne 02/26/21 09/07/22 History baclofen 10 mg tablet 20 mg PO TID PRN Back Pain 07/18/21 09/07/22 History cholecalciferol (vitamin D3) 250 250 mcg PO WEEKLY 07/18/21 09/07/22 History mcg (10,000 unit) tablet albuterol sulfate 90 mcg/actuation 2 inh inhalation Q4-6H PRN 09/04/21 09/07/22 Rx breath activated powder inhaler shortness of breath or wheezing #1 ea cetirizine 10 mg capsule (Zyrtec) 10 mg PO DAILY PRN allergy 09/04/21 09/07/22 Rx symptoms #30 caps azelastine 137 mcg (0.1 %) nasal 1 spray intranasal Q12H #30 mL 01/07/22 09/07/22 Rx spray aerosol clonidine 0.1 mg/24 hr weekly See Rx Instructions .Route 01/15/22 09/07/22 Rx transdermal patch .COMPLEX #12 patches alendronate 70 mg tablet 70 mg PO WEEKLY 90 days #13 tabs 02/13/22 09/07/22 Rx carvedilol 25 mg tablet 25 mg PO Q12H #180 tabs 03/05/22 09/07/22 Rx losartan 100 mg tablet 100 mg PO DAILY #90 tabs 03/05/22 09/07/22 Rx rosuvastatin 20 mg tablet 20 mg PO DAILY #90 tabs 03/05/22 09/07/22 Rx duloxetine 20 mg capsule,delayed 60 mg PO DAILY #270 caps 03/10/22 09/07/22 Rx release ondansetron HCl 4 mg tablet 4 mg PO Q8H PRN nausea and 03/10/22 09/07/22 Rx vomiting #90 tabs omeprazole 40 mg capsule,delayed See Rx Instructions .Route 07/30/22 09/07/22 Rx release .COMPLEX #30 caps dicyclomine 10 mg capsule See Rx Instructions .Route 08/11/22 09/07/22 Rx .COMPLEX #270 caps mupirocin 2 % topical ointment 1 applic topical DAILY PRN Rash 08/28/22 09/07/22 History oxycodone-acetaminophen 10 mg-325 1 tablet PO DAILY PRN Pain 08/28/22 09/07/22 History mg tablet Patient hx anesthesia problems: none Family hx anesthesia problems: none Results Review: All pre-operative results and documents have been reviewed as part of the pre-operative evaluation. [facility] Past Medical History Medical History (Updated 03/10/22 @ 12:25 by Ragini Black NP) Age related osteoporosis Arthritis Chronic pain Depression Dysphagia Ectopic FH: cholecystectomy Hypertension Migraine Smoke hypersensitivity Thrombocytosis Thyroid disorder Tumor Schwanoma Removed Ulcer Surgical History Surgical History H/O laparoscopy H/O myomectomy H/O oo
--- NOTE | 2022-09-07 12:39 | PM.HPGS ---
History of Present Illness History of Present Illness Consent: Risks, benefits, and alternatives have been discussed and questions answered. Patient agrees to proceed with procedure. Chief complaint: barretts esophagus Narrative: Ca Jaramillo is a 56 year old female with hall's without dysplasia, also had - doing well on ppi daily Review of Systems Constitutional: Constitutional: Denies headache(s) and Denies weakness Eyes: Eyes: Denies blurry vision ENT: Reports Normal hearing present, Denies headache(s) and Denies neck pain Cardiovascular: Cardiovascular: Denies chest pain and Denies dyspnea Respiratory: Respiratory: Denies dyspnea Gastrointestinal: Gastrointestinal: Reports no additional gastrointestinal complaints Genitourinary: Genitourinary: Denies dysuria Musculoskeletal: Musculoskeletal: Denies neck pain Integumentary/Breasts: Skin/Breast: Denies dry skin Neurologic: Reports Normal hearing present, Denies headache(s) and Denies weakness Psychiatric: Psychiatric: Denies anxiety Endocrine: Endocrine: Denies change in body appearance Hematologic/Lymphatic: Hematologic/Lymphatic: Denies easy bleeding Allergic/Immunologic: Allergic/Immunologic: Denies urticaria PMF Past Medical History Medical History (Updated 09/07/22 @ 12:39 by Dirk Vazquez MD) Age related osteoporosis Arthritis Hall's esophagus with esophagitis Chronic pain Depression Dysphagia Ectopic FH: cholecystectomy Hypertension Migraine Smoke hypersensitivity Thrombocytosis Thyroid disorder Tumor Schwanoma Removed Ulcer Surgical History Surgical History H/O laparoscopy H/O myomectomy H/O oophorectomy H/O: hysterectomy History of appendectomy History of back surgery Cervical Decompression 03/2012 History of laminectomy 10/2011 Family History Family History Father Diabetes mellitus Heart disease Mother Acute myocardial infarction Heart disease Sibling Asthma Hypertension Grandparent Diabetes mellitus Other Family history of osteoarthritis Social History Social History (Updated 03/10/22 @ 11:48 by Anh Jorgensen MA) Social History: Caffeine-rarely Smoking status: Never smoker Second hand tobacco smoke exposure: No Alcohol intake: never Substance use: never Substance use type: does not use Living arrangements: with family Gender identity (if verbalized by the patient): Female Spiritual care concerns: No Meds Home Medications and Allergies Home Medications Medication Instructions Recorded Confirmed Type diclofenac sodium 1 % topical gel 2 gm topical QID #100 grams 09/20/19 09/07/22 Rx (Voltaren) hydrocodone 10 mg-acetaminophen 1 tablet PO BID 02/05/20 09/07/22 History 325 mg tablet clobetasol 0.05 % topical cream 1 applic topical BID PRN Acne 02/26/21 09/07/22 History baclofen 10 mg tablet 20 mg PO TID PRN Back Pain 07/18/21 09/07/22 History cholecalciferol (vitamin D3) 250 250 mcg PO WEEKLY 07/18/21 09/07/22 History mcg (10,000 unit) tablet albuterol sulfate 90 mcg/actuation 2 inh inhalation Q4-6H PRN 09/04/21 09/07/22 Rx breath activated powder inhaler shortness of breath or wheezing #1 ea cetirizine 10 mg capsule (Zyrtec) 10 mg PO DAILY PRN allergy 09/04/21 09/07/22 Rx symptoms #30 caps azelastine 137 mcg (0.1 %) nasal 1 spray intranasal Q12H #30 mL 01/07/22 09/07/22 Rx spray aerosol clonidine 0.1 mg/24 hr weekly See Rx Instructions .Route 01/15/22 09/07/22 Rx transdermal patch .COMPLEX #12 patches alendronate 70 mg tablet 70 mg PO WEEKLY 90 days #13 tabs 02/13/22 09/07/22 Rx carvedilol 25 mg tablet 25 mg PO Q12H #180 tabs 03/05/22 09/07/22 Rx losartan 100 mg tablet 100 mg PO DAILY #90 tabs 03/05/22 09/07/22 Rx rosuvastatin 20 mg tablet 20 mg PO DAILY #90 tabs 03/05/22 09/07/22 Rx duloxetine 20 mg ca
[2022-09-07 12:51] VITALS: BP 125/77; PULSE 70; RESP 16; O2SAT 95
[2022-09-07 13:01] VITALS: BP 130/74; PULSE 77; RESP 18; O2SAT 96
[2022-09-07 13:11] VITALS: BP 128/63; PULSE 75; RESP 18; O2SAT 96
== END 2022-09-07 13:20 | disposition home or self-care (01) ==
PROVIDERS: PCP Nurse Practitioner; Visit Provider Internal Medicine Gastroenterology
PROC: 0DJ08ZZ Inspection of Upper Intestinal Tract, Via Natural or Artificial Opening Endoscopic (ICD-10-PCS; CPT 43235; principal; 2022-09-07 12:30)
DX: K22.70 Barrett's esophagus without dysplasia (principal); K44.9 Diaphragmatic hernia without obstruction or gangrene; K29.70 Gastritis, unspecified, without bleeding; I10 Essential (primary) hypertension; M81.0 Age-related osteoporosis without current pathological fracture; F32.A Depression, unspecified; Z79.51 Long term (current) use of inhaled steroids; E66.9 Obesity, unspecified; Z68.36 Body mass index [BMI] 36.0-36.9, adult
CPT/HCPCS: 43239; 88305; J2704; J7120

== ENCOUNTER 2022-09-10 09:19 | Outpatient (RCR) | payer OTHER, SELFPAY ==
[2022-09-10 12:18] VITALS: BMI 36.9
--- NOTE | 2022-10-05 12:42 | PCWOUND ---
WOCN NOTE Patient called to report her wound is closed and does not need further follow up evaluation.
== END 2022-11-27 15:51 | disposition home or self-care (01) ==
LOC: ANHWOC 09:19
PROVIDERS: PCP Nurse Practitioner; Visit Provider Internal Medicine Hematology & Oncology
DX: L08.9 Local infection of the skin and subcutaneous tissue, unspecified (principal); T14.8XXD Other injury of unspecified body region, subsequent encounter
CPT/HCPCS: 99213; A9270; G0463

== ENCOUNTER 2022-11-26 08:29 | Emergency (ER) | payer OTHER, SELFPAY ==
--- NOTE | ~2022-11-26 | XR_ITS ---
AP and oblique views of the right ribs Clinical History: Pain Findings: No rib fracture is seen. Osseous alignment is anatomic. Lungs are clear, without focal cons olidation or pleural effusion. Cardiomediastinal contour is within normal limits. Soft tissues are un remarkable. Impression: No rib fracture is seen. Reviewed, dictated and finalized at [facility]. TY JAILER Impression: No rib fracture is seen.
[2022-11-26 08:42] VITALS: BP 136/80; PULSE 78; RESP 18; TEMP 36.4; O2SAT 97
--- NOTE | 2022-11-26 09:46 | ED.GENADULT ---
HPI - General Adult General Chief complaint: Unspecified Stated complaint: R. rib pain Time Seen by Provider: 11/26/22 09:30 Source: patient Mode of arrival: ambulatory Limitations: no limitations History of Present Illness HPI narrative: This is a 57-year-old female that presents to the emergency department for right-sided chest wall pain ongoing since last night. Reports she was reaching into her deep freezer and felt a pop on the right side of her ribs. Since she has had sharp right-sided chest wall pain. Worse with certain movements and deep breathing. She took her Corinth that she has prescribed for chronic pain with some relief. Denies fever, cough, or shortness of breath. Related Data Home Medications Medication Instructions Recorded Confirmed hydrocodone 10 mg-acetaminophen 1 tablet PO BID 02/05/20 09/10/22 325 mg tablet clobetasol 0.05 % topical cream 1 applic topical BID PRN Acne 02/26/21 09/10/22 baclofen 10 mg tablet 20 mg PO TID PRN Back Pain 07/18/21 09/10/22 cholecalciferol (vitamin D3) 250 250 mcg PO WEEKLY 07/18/21 09/10/22 mcg (10,000 unit) tablet mupirocin 2 % topical ointment 1 applic topical DAILY PRN Rash 08/28/22 09/10/22 oxycodone-acetaminophen 10 mg-325 1 tablet PO DAILY PRN Pain 08/28/22 09/10/22 mg tablet Allergies Allergy/AdvReac Type Severity Reaction Status Date / Time gabapentin Allergy Intermediate Hives Verified 11/26/22 09:35 Penicillins Allergy Intermediate Hives Verified 11/26/22 09:35 Sulfa (Sulfonamide Allergy Intermediate Hives Verified 11/26/22 09:35 Antibiotics) diphenhydramine Allergy Mild IV Verified 11/26/22 09:35 RESTLESS, PO OK prochlorperazine Allergy Mild IV Verified 11/26/22 09:35 RESTLESS, PO OK promethazine Allergy Mild IV Verified 11/26/22 09:35 RESTLESS, PO OK Quinolones Allergy Mild Hives Verified 11/26/22 09:35 prabotulinumtoxinA-xvfs AdvReac Severe anger Verified 11/26/22 09:35 ciprofloxacin AdvReac Intermediate Nausea and Verified 11/26/22 09:35 Vomiting pregabalin [From Lyrica] AdvReac Intermediate Mood Verified 11/26/22 09:35 Changes Review of Systems Review of Systems: CONSTITUTIONAL: Denies fever CARDIOVASCULAR: Reports chest pain. Denies edema. RESPIRATORY: Denies cough or dyspnea. All systems reviewed & are unremarkable except as noted in HPI and below PMFSH Past Medical History Medical History (Updated 11/26/22 @ 09:48 by Mely Townsend PA-C) Age related osteoporosis Arthritis Pollock's esophagus with esophagitis Chronic pain Depression Dysphagia Ectopic FH: cholecystectomy Hypertension Migraine Smoke hypersensitivity Thrombocytosis Thyroid disorder Tumor Schwanoma Removed Ulcer Surgical History Surgical History H/O laparoscopy H/O myomectomy H/O oophorectomy H/O: hysterectomy History of appendectomy History of back surgery Cervical Decompression 03/2012 History of laminectomy 10/2011 Family History Family History Father Diabetes mellitus Heart disease Mother Acute myocardial infarction Heart disease Sibling Asthma Hypertension Grandparent Diabetes mellitus Other Family history of osteoarthritis Social History Social History (Updated 03/10/22 @ 11:48 by Anh Jorgensen MA) Social History: Caffeine-rarely Smoking status: Never smoker Second hand tobacco smoke exposure: No Alcohol intake: never Substance use: never Substance use type: does not use Living arrangements: with family Gender identity (if verbalized by the patient): Female Spiritual care concerns: No Exam Narrative: GENERAL: Well-appearing, well-nourished, and in no acute distress. HEAD: Normocephalic, atraumatic. EYES: EOMI. CHEST: Clear to auscultation. No respiratory distress. No wheezes rales or rhonchi. Tender to palpation of right anterior/later
== END 2022-11-26 10:35 | disposition home or self-care (01) ==
LOC: ANHED 10:20
PROVIDERS: Emergency Provider Physician Assistant; PCP Nurse Practitioner
DX: S29.011A Strain of muscle and tendon of front wall of thorax, initial encounter (principal); I10 Essential (primary) hypertension; E07.9 Disorder of thyroid, unspecified; M19.90 Unspecified osteoarthritis, unspecified site; M81.0 Age-related osteoporosis without current pathological fracture; K22.70 Barrett's esophagus without dysplasia; Z90.710 Acquired absence of both cervix and uterus; X50.9XXA Other and unspecified overexertion or strenuous movements or postures, initial encounter
CPT/HCPCS: 71100; 99283

== ENCOUNTER → 2022-12-04 07:53 | Outpatient (CLI) | payer OTHER, SELFPAY ==
--- NOTE | ~2022-12-04 | US_ITS ---
EXAMINATION: US right upper quadrant DATE: 12/04/2022 08:18 INDICATION: Right upper quadrant pain TECHNIQUE: Multiple grayscale and Doppler ultrasound images of the abdomen were obtained. COMPARISON: None available FINDINGS: Bowel gas obscures visualization of the pancreas. The liver is normal with normal echogenic ity and echotexture. No surface nodularity. Normal hepatopetal flow in the main portal vein. The gall bladder is surgically absent. The normal common bile duct measures 5 mm. IMPRESSION: 1. No sonographic correlate for the patient's symptoms. Reviewed, dictated and finalized at location B. R RETORT
== END ==
PROVIDERS: PCP Internal Medicine; Visit Provider Nurse Practitioner
DX: R10.11 Right upper quadrant pain (principal)
CPT/HCPCS: 76705

== ENCOUNTER 2023-01-11 13:00 | Outpatient (CLI) | payer OTHER, SELFPAY ==
[2023-01-11 13:15] LABS: Basophils Absolute Auto 0.1 K/mm3 (0.0-0.1); Basophils Percent Auto 0.5 % (0.2-1.2); Eosinophils Absolute Auto 0.5 K/mm3 (0-0.3); Eosinophils Percent Auto 3.7 % (0-4.4); Hematocrit 44.4 % (37.0-47.0); Hemoglobin 14.2 g/dL (12.0-15.0); Immature Granulocyte Absolute 0.05 K/mm3 (0.00-0.031); Immature Granulocyte Percent A 0.4 % (0-0.5); Lymphocytes Absolute Auto 3.24 K/mm3 (0.9-3.2); Lymphocytes Percent Auto 23.8 % (18.3-44.2); Mean Corpuscular Hemoglobin 29.7 pg (26-34); Mean Corpuscular Volume 92.9 fl (80-100); Mean Platelet Volume 8.9 fl (7.4-10.4); Monocytes Absolute Auto 1.3 K/mm3 (0.1-0.6); Monocytes Percent Auto 9.8 % (2.6-8.5); Neutrophils Absolute Auto 8.4 K/mm3 (1.3-6.7); Neutrophils Percent Auto 61.8 % (45.5-73.1); Platelet Count Result 436 k/mm3 (150-375); Red Blood Count 4.78 M/mm3 (4.2-5.4); Red Cell Distribution Width 13.1 % (11.5-14.5); White Blood Count 13.6 K/mm3 (4.5-10.0)
== END 2023-01-11 13:01 | disposition home or self-care (01) ==
LOC: ANHLAB 13:04
PROVIDERS: PCP Internal Medicine; Visit Provider Internal Medicine Hematology & Oncology
DX: D75.838 Other thrombocytosis (principal)
CPT/HCPCS: 36415; 85025

== ENCOUNTER 2023-02-18 13:09 | Outpatient (CLI) | payer OTHER, SELFPAY ==
--- NOTE | ~2023-02-18 | MR_ITS ---
EXAMINATION: MR brain/brain stem wo/w con DATE: 02/18/2023 15:30 INDICATION: Memory loss. TECHNIQUE: Magnetic resonance imaging (MRI) of the brain and brainstem was performed without and with 18 mL MultiHance intravenous contrast. COMPARISON: None. FINDINGS: There is a focus of increased T2-weighted signal intensity in the right parietal deep white matter, which is normal as an isolated finding. There is no intracranial hemorrhage, acute infarctio n, or abnormal intracranial mass lesion. The ventricles are normal in size. There is a mucous retenti on cyst in right maxillary sinus. The orbits are normal. The mastoid air cells are normal. IMPRESSION: 1. Normal brain. Reviewed, dictated and finalized at location E. IMPRESSION: 1. Normal brain.
[2023-02-18 13:46] LABS: Basophils Absolute Auto 0.1 K/mm3 (0.0-0.1); Basophils Percent Auto 0.4 % (0.2-1.2); Eosinophils Absolute Auto 0.3 K/mm3 (0-0.3); Eosinophils Percent Auto 2.1 % (0-4.4); Hematocrit 45.5 % (37.0-47.0); Hemoglobin 14.3 g/dL (12.0-15.0); Immature Granulocyte Absolute 0.04 K/mm3 (0.00-0.031); Immature Granulocyte Percent A 0.3 % (0-0.5); Lymphocytes Absolute Auto 3.12 K/mm3 (0.9-3.2); Lymphocytes Percent Auto 26.2 % (18.3-44.2); Mean Corpuscular HGB Conc 31.4 g/dl (32-36); Mean Corpuscular Hemoglobin 30.3 pg (26-34); Mean Corpuscular Volume 96.4 fl (80-100); Mean Platelet Volume 9.1 fl (7.4-10.4); Monocytes Absolute Auto 1.1 K/mm3 (0.1-0.6); Monocytes Percent Auto 8.8 % (2.6-8.5); Neutrophils Absolute Auto 7.4 K/mm3 (1.3-6.7); Neutrophils Percent Auto 62.2 % (45.5-73.1); Platelet Count Result 419 k/mm3 (150-375); Red Blood Count 4.72 M/mm3 (4.2-5.4); Red Cell Distribution Width 12.9 % (11.5-14.5); White Blood Count 11.9 K/mm3 (4.5-10.0)
[2023-02-18 13:55] LABS: Alanine Aminotransferase 26 U/L (6-35); Albumin Level 4.2 g/dL (3.5-5.1); Alkaline Phosphatase 47 U/L (38-126); Anion Gap 6 mmol/L (8-16); Aspartate Amino Transferase 25 U/L (14-36); Bilirubin,Total 0.6 mg/dL (0.2-1.3); Blood Urea Nitrogen 14 mg/dL (7-17); Calcium 8.8 mg/dL (8.4-10.2); Carbon Dioxide 30 mmol/L (22-30); Chloride 103 mmol/L (98-107); Estimated Glomerular Filt Rate > 60; Glucose 115 mg/dL (65-110); Potassium 4.4 mmol/L (3.4-5.0); Sodium 139 mmol/L (137-145)
[2023-02-18 14:24] LABS: Thyroid Stimulating Hormone 0.862 uIU/mL (0.465-4.680)
== END 2023-02-18 13:10 | disposition home or self-care (01) ==
LOC: ANHIMG 13:13
PROVIDERS: PCP Internal Medicine; Visit Provider Clinical Nurse Specialist
DX: R41.3 Other amnesia (principal); R41.9 Unspecified symptoms and signs involving cognitive functions and awareness; D75.839 Thrombocytosis, unspecified; I10 Essential (primary) hypertension
CPT/HCPCS: 36415; 70553; 80053; 82607; 84443; 85025; A9577

== ENCOUNTER 2023-04-12 15:06 | Outpatient (CLI) | payer OTHER, SELFPAY ==
[2023-04-12 15:24] LABS: Basophils Absolute Auto 0.1 K/mm3 (0.0-0.1); Basophils Percent Auto 0.7 % (0.2-1.2); Eosinophils Absolute Auto 0.5 K/mm3 (0-0.3); Eosinophils Percent Auto 6.5 % (0-4.4); Hematocrit 44.7 % (37.0-47.0); Hemoglobin 14.2 g/dL (12.0-15.0); Immature Granulocyte Absolute 0.01 K/mm3 (0.00-0.031); Immature Granulocyte Percent A 0.1 % (0-0.5); Lymphocytes Absolute Auto 2.13 K/mm3 (0.9-3.2); Lymphocytes Percent Auto 30.6 % (18.3-44.2); Mean Corpuscular HGB Conc 31.8 g/dl (32-36); Mean Corpuscular Hemoglobin 30.3 pg (26-34); Mean Corpuscular Volume 95.5 fl (80-100); Mean Platelet Volume 9.2 fl (7.4-10.4); Monocytes Absolute Auto 0.7 K/mm3 (0.1-0.6); Monocytes Percent Auto 9.9 % (2.6-8.5); Neutrophils Absolute Auto 3.6 K/mm3 (1.3-6.7); Neutrophils Percent Auto 52.2 % (45.5-73.1); Platelet Count Result 368 k/mm3 (150-375); Red Blood Count 4.68 M/mm3 (4.2-5.4); Red Cell Distribution Width 12.8 % (11.5-14.5)
== END 2023-04-12 15:07 | disposition home or self-care (01) ==
LOC: ANHLAB 15:07
PROVIDERS: PCP Internal Medicine; Visit Provider Internal Medicine Hematology & Oncology
DX: D75.838 Other thrombocytosis (principal)
CPT/HCPCS: 36415; 85025

== ENCOUNTER 2023-05-25 12:56 | Outpatient (CLI) | payer OTHER, SELFPAY ==
[2023-05-25 18:39] LABS: Basophils Absolute Auto 0.1 K/mm3 (0.0-0.1); Basophils Percent Auto 0.6 % (0.2-1.2); Eosinophils Absolute Auto 0.6 K/mm3 (0-0.3); Eosinophils Percent Auto 7.8 % (0-4.4); Hemoglobin 14.8 g/dL (12.0-15.0); Immature Granulocyte Absolute 0.01 K/mm3 (0.00-0.031); Immature Granulocyte Percent A 0.1 % (0-0.5); Lymphocytes Absolute Auto 2.49 K/mm3 (0.9-3.2); Lymphocytes Percent Auto 31.6 % (18.3-44.2); Mean Corpuscular HGB Conc 30.8 g/dl (32-36); Mean Corpuscular Volume 97.4 fl (80-100); Mean Platelet Volume 9.9 fl (7.4-10.4); Monocytes Absolute Auto 0.7 K/mm3 (0.1-0.6); Neutrophils Percent Auto 50.9 % (45.5-73.1); Platelet Count Result 390 k/mm3 (150-375); Red Blood Count 4.93 M/mm3 (4.2-5.4); White Blood Count 7.9 K/mm3 (4.5-10.0)
[2023-05-25 18:43] LABS: Cholesterol 168 mg/dL (0-200); HDL Direct 47 mg/dL; Triglycerides 173 mg/dL (<150)
[2023-05-25 18:54] LABS: LDL Cholesterol Direct 85 mg/dL
[2023-05-25 19:16] LABS: Vitamin D 25 Hydroxy 19.9 ng/mL
== END 2023-05-25 12:57 | disposition home or self-care (01) ==
LOC: ANHGOSHLAB 12:57
PROVIDERS: PCP Internal Medicine; Visit Provider Clinical Nurse Specialist
DX: E78.2 Mixed hyperlipidemia (principal); E55.9 Vitamin D deficiency, unspecified; D72.829 Elevated white blood cell count, unspecified
CPT/HCPCS: 36415; 80061; 82306; 85025

== ENCOUNTER → 2023-07-01 08:55 | Outpatient (CLI) | payer OTHER, SELFPAY ==
--- NOTE | ~2023-07-01 | XR_ITS ---
Cervical Spine: AP, lateral, open-mouth views Clinical History: Pain Findings: The normal lordotic curve is maintained. There is interbody fusion from C5 to C6. Remaining disc spaces are preserved. No fracture or subluxation evident. Pre-vertebral soft tissues are unrema rkable. Impression: Interbody fusion from C5 to C6. Reviewed, dictated and finalized at [facility]. Impression: Interbody fusion from C5 to C6.
--- NOTE | ~2023-07-01 | XR_ITS ---
Lumbosacral Spine: AP and lateral views Clinical History: Pain Findings: The normal lordotic curve is maintained. The vertebral bodies and posterior elements are i ntact. There is mild degenerative disc change at L1-L2. There is mild to moderate facet arthropathy f rom L3 through S1. The sacroiliac joints are normally outlined. Impression: Mild degenerative spondylosis, as above. Reviewed, dictated and finalized at location . Impression: Mild degenerative spondylosis, as above.
--- NOTE | ~2023-07-01 | XR_ITS ---
Thoracic spine: Clinical Indication: Back pain AP and lateral views were performed. No fracture is seen. There is normal alignment of the vertebrae. The intervertebral disc spaces appe ar normal. Paravertebral soft tissues appear normal. Impression: No significant abnormalities noted. Reviewed, dictated and finalized at [facility]. Impression: No significant abnormalities noted.
== END ==
PROVIDERS: PCP Pain Medicine Interventional Pain Medicine; Visit Provider Pain Medicine Interventional Pain Medicine
DX: M47.22 Other spondylosis with radiculopathy, cervical region (principal); Z98.1 Arthrodesis status
CPT/HCPCS: 72050; 72070; 72100

== ENCOUNTER 2023-10-11 13:42 | Outpatient (CLI) | payer OTHER, SELFPAY ==
[2023-10-11 13:55] LABS: Basophils Absolute Auto 0.1 K/mm3 (0.0-0.1); Basophils Percent Auto 0.5 % (0.2-1.2); Eosinophils Absolute Auto 0.2 K/mm3 (0-0.3); Hematocrit 43.2 % (37.0-47.0); Hemoglobin 13.9 g/dL (12.0-15.0); Immature Granulocyte Absolute 0.03 K/mm3 (0.00-0.031); Immature Granulocyte Percent A 0.3 % (0-0.5); Lymphocytes Absolute Auto 3.24 K/mm3 (0.9-3.2); Lymphocytes Percent Auto 28.9 % (18.3-44.2); Mean Corpuscular HGB Conc 32.2 g/dl (32-36); Mean Corpuscular Hemoglobin 30.2 pg (26-34); Mean Corpuscular Volume 93.7 fl (80-100); Mean Platelet Volume 8.8 fl (7.4-10.4); Monocytes Absolute Auto 1.1 K/mm3 (0.1-0.6); Monocytes Percent Auto 9.7 % (2.6-8.5); Neutrophils Absolute Auto 6.6 K/mm3 (1.3-6.7); Neutrophils Percent Auto 58.6 % (45.5-73.1); Platelet Count Result 444 k/mm3 (150-375); Red Blood Count 4.61 M/mm3 (4.2-5.4); Red Cell Distribution Width 13.2 % (11.5-14.5); White Blood Count 11.2 K/mm3 (4.5-10.0)
== END 2023-10-11 13:43 | disposition home or self-care (01) ==
LOC: ANHLAB 13:44
PROVIDERS: PCP Pain Medicine Interventional Pain Medicine; Visit Provider Internal Medicine Hematology & Oncology
DX: D75.838 Other thrombocytosis (principal)
CPT/HCPCS: 36415; 85025

== ENCOUNTER 2024-01-24 10:38 | Outpatient (CLI) | payer OTHER, SELFPAY ==
[2024-01-24 10:59] LABS: Basophils Absolute Auto 0.1 K/mm3 (0.0-0.1); Basophils Percent Auto 0.5 % (0.2-1.2); Eosinophils Absolute Auto 0.5 K/mm3 (0-0.3); Eosinophils Percent Auto 4.9 % (0-4.4); Hematocrit 43.1 % (37.0-47.0); Hemoglobin 13.7 g/dL (12.0-15.0); Immature Granulocyte Absolute 0.02 K/mm3 (0.00-0.031); Immature Granulocyte Percent A 0.2 % (0-0.5); Lymphocytes Absolute Auto 2.95 K/mm3 (0.9-3.2); Lymphocytes Percent Auto 32.4 % (18.3-44.2); Mean Corpuscular HGB Conc 31.8 g/dl (32-36); Mean Corpuscular Hemoglobin 30.1 pg (26-34); Mean Corpuscular Volume 94.7 fl (80-100); Mean Platelet Volume 9.3 fl (7.4-10.4); Monocytes Percent Auto 10.4 % (2.6-8.5); Neutrophils Absolute Auto 4.7 K/mm3 (1.3-6.7); Neutrophils Percent Auto 51.6 % (45.5-73.1); Platelet Count Result 389 k/mm3 (150-375); Red Blood Count 4.55 M/mm3 (4.2-5.4); Red Cell Distribution Width 12.7 % (11.5-14.5); White Blood Count 9.1 K/mm3 (4.5-10.0)
[2024-01-24 12:21] LABS: Alanine Aminotransferase 31 U/L (6-35); Albumin Level 4.3 g/dL (3.5-5.1); Alkaline Phosphatase 68 U/L (38-126); Anion Gap 7 mmol/L (4-12); Aspartate Amino Transferase 30 U/L (14-36); Bilirubin,Total 0.4 mg/dL (0.2-1.3); Blood Urea Nitrogen 14 mg/dL (7-17); Calcium 9.5 mg/dL (8.4-10.2); Carbon Dioxide 29 mmol/L (22-30); Chloride 104 mmol/L (98-107); Cholesterol 162 mg/dL (0-200); Estimated Glomerular Filt Rate > 60; Glucose 122 mg/dL (65-110); HDL Direct 58 mg/dL; Potassium 3.9 mmol/L (3.4-5.0); Sodium 140 mmol/L (137-145); Triglycerides 157 mg/dL (<150)
[2024-01-24 12:33] LABS: LDL Cholesterol Direct 92 mg/dL
[2024-01-24 12:36] LABS: Vitamin D 25 Hydroxy 35.8 ng/mL
[2024-01-24 13:41] LABS: Hemoglobin A1C 6.4 % (<5.7)
== END 2024-01-24 10:39 | disposition home or self-care (01) ==
LOC: ANHLAB 10:40
PROVIDERS: Nurse Practitioner; PCP Internal Medicine; Visit Provider Internal Medicine Hematology & Oncology
DX: E11.9 Type 2 diabetes mellitus without complications (principal); D75.838 Other thrombocytosis
CPT/HCPCS: 36415; 80053; 80061; 82306; 83036; 85025

== ENCOUNTER 2024-05-12 12:58 | Emergency (ER) | payer OTHER, SELFPAY ==
[2024-05-12 13:15] VITALS: BP 161/99; PULSE 76; RESP 16; TEMP 36.4; O2SAT 97
[2024-05-12 13:24] LABS: EDUAAPPEAR Clear; EDUABILI 1+; EDUABLOOD Negative; EDUACOLOR1 Yellow; EDUAGLUCOSE Negative; EDUAKETONE 1+; EDUALEUKO Trace; EDUANITRATE Negative; EDUAPH 5.5; EDUAPROTEIN Trace; EDUASPGRAVITY 1.025; EDUAUROBILI 0.2
--- NOTE | 2024-05-12 13:43 | ED.FEMALEGU ---
HPI - Female Genitourinary General Chief complaint: Urogenital-Female Stated complaint: PAINFUL URINATION/PRESSURE/FREQUENCY Time Seen by Provider: 05/12/24 13:31 Source: patient and RN notes reviewed Mode of arrival: ambulatory Limitations: no limitations History of Present Illness HPI Narrative: Patient presents today with a one-week history of dysuria after voiding, suprapubic pressure, hesitancy. Denies fever. She has tried a heating pad without relief. History of previous UTIs and multiple drug allergies as well as kidney stones. Related Data Home Medications Medication Instructions Recorded Confirmed cholecalciferol (vitamin D3) 250 250 mcg PO WEEKLY 07/18/21 05/12/24 mcg (10,000 unit) tablet oxycodone-acetaminophen 10 mg-325 1 tablet PO DAILY PRN Pain 08/28/22 12/07/23 mg tablet carisoprodol 250 mg tablet 250 mg PO BID 12/07/23 05/12/24 hydrocodone 7.5 mg-acetaminophen 1 tablet PO BID PRN 12/07/23 12/07/23 325 mg tablet omeprazole 40 mg capsule,delayed See Rx Instructions .Route .COMPLEX 12/07/23 05/12/24 release Allergies Allergy/AdvReac Type Severity Reaction Status Date / Time gabapentin Allergy Intermediate Hives Verified 05/12/24 13:26 Penicillins Allergy Intermediate Hives Verified 05/12/24 13:26 Sulfa (Sulfonamide Allergy Intermediate Hives Verified 05/12/24 13:26 Antibiotics) diphenhydramine Allergy Mild IV Verified 05/12/24 13:26 RESTLESS, PO OK prochlorperazine Allergy Mild IV Verified 05/12/24 13:26 RESTLESS, PO OK promethazine Allergy Mild IV Verified 05/12/24 13:26 RESTLESS, PO OK Quinolones Allergy Mild Hives Verified 05/12/24 13:26 prabotulinumtoxinA-xvfs AdvReac Severe anger Verified 05/12/24 13:26 ciprofloxacin AdvReac Intermediate Nausea and Verified 05/12/24 13:26 Vomiting pregabalin [From Lyrica] AdvReac Intermediate Mood Verified 05/12/24 13:26 Changes Review of Systems Review of Systems: CONSTITUTIONAL: Denies body aches, fever, chills, or sweats. EYES: Denies visual changes, redness, or discharge. ENT: Denies rhinorrhea, congestion, sore throat, or otalgia. CARDIOVASCULAR: Denies chest pain, palpitations, or edema. RESPIRATORY: Denies cough or dyspnea. GASTROINTESTINAL: Denies abdominal pain, nausea, vomiting, or diarrhea. GENITOURINARY: +dysuria, suprapubic pressure, hesitancy. SKIN: Denies rash, itching, or wounds. MUSCULOSKELETAL: Denies back pain, joint pain, or myalgia. NEUROLOGIC: Denies headache, numbness, tingling, or weakness. PSYCH: Denies depression or anxiety. [facility] Past Medical History Medical History Age related osteoporosis Arthritis Pollock's esophagus with esophagitis Chronic pain Depression Dysfunction of left eustachian tube Dysphagia Ectopic FH: cholecystectomy Hypertension Migraine Otitis media Otitis media, left Screening for breast cancer Smoke hypersensitivity Thrombocytosis Thyroid disorder Tumor Schwanoma Removed Ulcer Surgical History Surgical History H/O laparoscopy H/O myomectomy H/O oophorectomy H/O: hysterectomy History of appendectomy History of back surgery Cervical Decompression 03/2012 History of laminectomy 10/2011 Family History Family History Father Diabetes mellitus Heart disease Mother Acute myocardial infarction Heart disease Sibling Asthma Hypertension Grandparent Diabetes mellitus Other Family history of osteoarthritis Social History Social History Social History: Caffeine-rarely Smoking status: Never smoker Second hand tobacco smoke exposure: No Alcohol intake: never Substance use: never Substance use type: does not use Lack of Transportation: No Lack of Food: Never True
== END 2024-05-12 14:02 | disposition home or self-care (01) ==
PROVIDERS: Emergency Provider Nurse Practitioner; PCP Nurse Practitioner
DX: N30.00 Acute cystitis without hematuria (principal); M81.0 Age-related osteoporosis without current pathological fracture; M19.90 Unspecified osteoarthritis, unspecified site; K22.70 Barrett's esophagus without dysplasia; K20.90 Esophagitis, unspecified without bleeding; I10 Essential (primary) hypertension
CPT/HCPCS: 81003; 87086; 87088; 99213; G0463

== ENCOUNTER 2024-05-29 09:10 | Outpatient (CLI) | payer OTHER, SELFPAY ==
[2024-05-29 11:39] LABS: Basophils Absolute Auto 0.1 K/mm3 (0.0-0.1); Basophils Percent Auto 0.7 % (0.2-1.2); Eosinophils Absolute Auto 0.4 K/mm3 (0-0.3); Eosinophils Percent Auto 4.8 % (0-4.4); Hematocrit 48.2 % (37.0-47.0); Hemoglobin 14.6 g/dL (12.0-15.0); Immature Granulocyte Absolute 0.02 K/mm3 (0.00-0.031); Immature Granulocyte Percent A 0.2 % (0-0.5); Lymphocytes Absolute Auto 3.34 K/mm3 (0.9-3.2); Lymphocytes Percent Auto 37.3 % (18.3-44.2); Mean Corpuscular HGB Conc 30.3 g/dl (32-36); Mean Corpuscular Hemoglobin 29.6 pg (26-34); Mean Corpuscular Volume 97.8 fl (80-100); Mean Platelet Volume 10.3 fl (7.4-10.4); Monocytes Percent Auto 10.9 % (2.6-8.5); Neutrophils Absolute Auto 4.1 K/mm3 (1.3-6.7); Neutrophils Percent Auto 46.1 % (45.5-73.1); Platelet Count Result 402 k/mm3 (150-375); Red Blood Count 4.93 M/mm3 (4.2-5.4); Red Cell Distribution Width 12.8 % (11.5-14.5)
[2024-05-29 11:48] LABS: Alanine Aminotransferase 29 U/L (6-35); Albumin Level 4.4 g/dL (3.5-5.1); Alkaline Phosphatase 81 U/L (38-126); Anion Gap 11 mmol/L (4-12); Aspartate Amino Transferase 45 U/L (14-36); Bilirubin,Total 0.5 mg/dL (0.2-1.3); Blood Urea Nitrogen 16 mg/dL (7-17); Calcium 9.6 mg/dL (8.4-10.2); Carbon Dioxide 29 mmol/L (22-30); Chloride 100 mmol/L (98-107); Estimated Glomerular Filt Rate > 60; Glucose 112 mg/dL (65-110); Sodium 140 mmol/L (137-145)
[2024-05-29 12:11] LABS: Add Urine Microscopic? YES; Appearance Urine Cloudy (Clear); Bacteria Urine None Seen /hpf; Bilirubin Urine Negative (Negative); Blood Urine Negative (Negative); Calcium Oxalate Crystals Urine Present /hpf; Color Urine Dark Yellow (Yellow); Glucose Urine UA Negative (Negative); Ketones Urine Trace mg/dL (Negative); Leukocyte Esterase Ur 1+ LEU/UL (Negative); Mucus Urine Present /lpf; Need Manual Microscopic Reviewed; Nitrate Urine Negative (Negative); Protein Urine 1+ mg/dL (Negative); Specific Grav Ur 1.039 (1.001-1.035); Squamous Epithelial Cell Urine Few /hpf (Few); WBC Urine 21-50 /hpf (0-3); pH Urine 5.5 (5.0-9.0)
[2024-05-29 12:15] LABS: Vitamin D 25 Hydroxy 15.9 ng/mL
== END 2024-05-29 09:11 | disposition home or self-care (01) ==
PROVIDERS: PCP Nurse Practitioner; Visit Provider Clinical Nurse Specialist
DX: D72.829 Elevated white blood cell count, unspecified (principal); D75.839 Thrombocytosis, unspecified; E11.9 Type 2 diabetes mellitus without complications; F51.04 Psychophysiologic insomnia; M54.9 Dorsalgia, unspecified; R39.9 Unspecified symptoms and signs involving the genitourinary system; E55.9 Vitamin D deficiency, unspecified
CPT/HCPCS: 36415; 80053; 81001; 82306; 85025; 87077; 87086; 87088; 87181

== ENCOUNTER 2024-05-29 09:29 | Outpatient (CLI) | payer OTHER, SELFPAY ==
--- NOTE | ~2024-05-29 | XR_ITS ---
XR abdomen/kub 1V Ordering provider: KEAGAN Kirk History: . LLQ pain radiating into Lt flank . Comparison: March 15, 2009 FINDINGS: BOWEL: Nonobstructive bowel gas pattern. ORGANOMEGALY: None. SIGNIFICANT PATHOLOGIC CALCIFICATIONS: None. OTHER: Degenerative spine. A right sacroiliitis. No free air is seen under the diaphragm. IMPRESSION: NO ACUTE ABDOMINAL FINDINGS. Reviewed, dictated and finalized at location A.
== END 2024-05-29 09:30 ==
LOC: GOSHIMG 09:29
PROVIDERS: PCP Clinical Nurse Specialist; Visit Provider Clinical Nurse Specialist
DX: R10.32 Left lower quadrant pain (principal); M54.9 Dorsalgia, unspecified
CPT/HCPCS: 74018

== ENCOUNTER 2024-06-01 09:17 | Outpatient (CLI) | payer OTHER, SELFPAY ==
--- NOTE | ~2024-06-01 | CT_ITS ---
Non-contrast CT scan of the Abdomen and Pelvis Clinical indication: Left-sided abdominal pain Technique: 2.5 mm axial scans were obtained through the abdomen and pelvis without intravenous or or al contrast. Dose reduction technique was used on this scan by utilizing automated exposure control a nd iterative reconstruction technique. The dose-length product (DLP) was 1073.61 mGy-cm. Findings: Images through the lung bases reveal no abnormalities. There is no evidence of renal or ureteral calculi. The kidneys and the ureters are nondilated. There is pneumobilia. Patient is status post cholecystectomy. The liver, spleen, pancreas, and adrena ls otherwise appear normal. There is no aortic aneurysm. There is no evidence of bowel obstruction. Images through the pelvis were performed. There is no evidence of ascites or lymphadenopathy. Urinary bladder unremarkable. No pelvic mass seen. Impression: No significant abnormality seen. Reviewed, dictated and finalized at [facility]. Impression: No significant abnormality seen.
== END 2024-06-01 09:18 ==
LOC: GOSHIMG 09:18
PROVIDERS: PCP Clinical Nurse Specialist; Visit Provider Clinical Nurse Specialist
DX: M54.9 Dorsalgia, unspecified (principal); N20.0 Calculus of kidney
CPT/HCPCS: 74176

== ENCOUNTER 2024-06-13 14:22 | Outpatient (NON) | payer OTHER, SELFPAY ==
[2024-06-13 19:14] LABS: Add Urine Microscopic? YES; Appearance Urine Turbid (Clear); Bacteria Urine None Seen /hpf; Bilirubin Urine Negative (Negative); Blood Urine Negative (Negative); Color Urine Dark Yellow (Yellow); Glucose Urine UA Negative (Negative); Ketones Urine Trace mg/dL (Negative); Leukocyte Esterase Ur Negative LEU/UL (Negative); Mucus Urine Present /lpf; Need Manual Microscopic Reviewed; Nitrate Urine Negative (Negative); Protein Urine 1+ mg/dL (Negative); RBC Urine 0-2 /hpf (0-2); Specific Grav Ur 1.037 (1.001-1.035); Squamous Epithelial Cell Urine None Seen /hpf (Few); WBC Urine 0-5 /hpf (0-3)
== END 2024-06-13 14:23 | disposition home or self-care (01) ==
LOC: ANHGOSHLAB 14:24
PROVIDERS: PCP Internal Medicine; Visit Provider Nurse Practitioner
DX: R39.9 Unspecified symptoms and signs involving the genitourinary system (principal); M54.9 Dorsalgia, unspecified
CPT/HCPCS: 81001

== ENCOUNTER 2024-07-26 13:36 | Outpatient (CLI) | payer OTHER, SELFPAY ==
--- NOTE | ~2024-07-26 | XR_ITS ---
XR_CERV2-3V_CR Ordering provider: Namita Pal History: . SACROILITIS . Comparison: July 11, 2023 FINDINGS: VERTEBRAL BODIES: Normal height and alignment. No visible fracture or subluxation. The dens is intact . DISK SPACES: Narrowing of the disc C4-C5. Disc spacers seen at the level of C5-C6. PARASPINOUS SOFT TISSUES: No prevertebral soft tissue swelling. IMPRESSION: No acute osseous abnormality cervical spine. Reviewed, dictated and finalized at location A.
--- NOTE | ~2024-07-26 | XR_ITS ---
XR sacroiliac joints min 3V Ordering provider: Namita Pal History: . SACROILITIS . Comparison: None. FINDINGS: BONES: No acute fracture or dislocation. JOINTS: The bilateral sacroiliac joint spaces appear well maintained. No bony fusion of the sacroilia c joints or bony erosions. SOFT TISSUES: Unremarkable. IMPRESSION: NO ACUTE OSSEOUS ABNORMALITY. NORMAL SACROILIAC JOINTS. Reviewed, dictated and finalized at location A.
--- NOTE | ~2024-07-26 | XR_ITS ---
3 VIEWS LUMBAR SPINE Ordering provider: Carmen Olmstead History: . SACROILITIS . Comparison: July 01, 2023 FINDINGS: VERTEBRAL BODIES:Mild levoscoliosis. No visible fracture or subluxation. Degenerative changes of the spine. DISK SPACES: Normal. SOFT TISSUES: Normal. IMPRESSION: No acute osseous abnormality lumbar spine. Reviewed, dictated and finalized at location A.
--- NOTE | ~2024-07-26 | XR_ITS ---
3 VIEWS THORACIC SPINE Ordering provider: Carmen Olmstead History: . SACROILITIS . Comparison: September 30, 2023 FINDINGS: VERTEBRAL BODIES: Severe kyphosis. Loss of volume of the midthoracic vertebrae is seen. Otherwise, No rmal height and alignment. No visible fracture or subluxation. Degenerative changes of the spine. DISK SPACES: Multilevel degenerative disc disease. SOFT TISSUES: Normal. IMPRESSION: No acute osseous abnormality of the thoracic spine. No change from previous examination. Reviewed, dictated and finalized at location A. IMPRESSION: No acute osseous abnormality of the thoracic spine. No change from previous exa mination.
== END 2024-07-26 13:37 | disposition home or self-care (01) ==
LOC: MICIMG 13:39
DX: M46.1 Sacroiliitis, not elsewhere classified (principal)
CPT/HCPCS: 72040; 72070; 72100; 72202

== ENCOUNTER 2024-07-31 10:09 | Outpatient (CLI) | payer OTHER, SELFPAY ==
[2024-07-31 10:35] LABS: Basophils Absolute Auto 0.1 K/mm3 (0.0-0.1); Basophils Percent Auto 0.7 % (0.2-1.2); Eosinophils Absolute Auto 0.7 K/mm3 (0-0.3); Hematocrit 43.1 % (37.0-47.0); Hemoglobin 13.7 g/dL (12.0-15.0); Immature Granulocyte Absolute 0.01 K/mm3 (0.00-0.031); Immature Granulocyte Percent A 0.1 % (0-0.5); Lymphocytes Percent Auto 43.1 % (18.3-44.2); Mean Corpuscular HGB Conc 31.8 g/dl (32-36); Mean Corpuscular Hemoglobin 30.2 pg (26-34); Mean Corpuscular Volume 95.1 fl (80-100); Mean Platelet Volume 9.3 fl (7.4-10.4); Monocytes Percent Auto 11.7 % (2.6-8.5); Neutrophils Percent Auto 36.4 % (45.5-73.1); Platelet Count Result 375 k/mm3 (150-375); Red Blood Count 4.53 M/mm3 (4.2-5.4); Red Cell Distribution Width 13.2 % (11.5-14.5); White Blood Count 8.4 K/mm3 (4.5-10.0)
== END 2024-07-31 10:10 | disposition home or self-care (01) ==
LOC: ANHLAB 10:11
PROVIDERS: Visit Provider Internal Medicine Hematology & Oncology
DX: D75.838 Other thrombocytosis (principal)
CPT/HCPCS: 36415; 85025

== ENCOUNTER 2025-01-29 09:52 | Outpatient (CLI) | payer OTHER, SELFPAY ==
[2025-01-29 10:03] LABS: Basophils Absolute Auto 0.1 K/mm3 (0.0-0.1); Basophils Percent Auto 0.5 % (0.2-1.2); Eosinophils Absolute Auto 0.6 K/mm3 (0-0.3); Eosinophils Percent Auto 5.5 % (0-4.4); Hemoglobin 13.5 g/dL (12.0-15.0); Immature Granulocyte Absolute 0.03 K/mm3 (0.00-0.031); Immature Granulocyte Percent A 0.3 % (0-0.5); Lymphocytes Absolute Auto 3.39 K/mm3 (0.9-3.2); Mean Corpuscular HGB Conc 32.1 g/dl (32-36); Mean Corpuscular Hemoglobin 30.3 pg (26-34); Mean Corpuscular Volume 94.2 fl (80-100); Mean Platelet Volume 8.5 fl (7.4-10.4); Monocytes Percent Auto 9.6 % (2.6-8.5); Neutrophils Percent Auto 50.1 % (45.5-73.1); Platelet Count Result 398 k/mm3 (150-375); Red Blood Count 4.46 M/mm3 (4.2-5.4); Red Cell Distribution Width 13.3 % (11.5-14.5)
--- OUTSIDE RECORDS SUMMARY | 2025-01-29 11:12 | XMS_ITS | Clinical Summary ---
Author Organization [facility] Address [address] [place] [address] Care Team Providers Care Educational Aide Name Role Phone Sharif Marin MD Unavailable [phone] Ragini Black APRN-ALARM SECURITY OR SURVEILLANCE MONITOR Primary Care Provider [phone] Source Comments [facility],non-owned Affiliates and Associated Physician Practices is amultiple site organization consisting of ambulatory clinics and hospital sitesin [place], [place], [place] and [place]. This disclosure is being madepursuant to the Care Everywhere program and may not contain all information available regarding this patient. Last updated 18.[facility] Allergies Active Allergy Reactions Criticality Noted Date Comments Ciprofloxacin Nausea and/or Vomiting 10/14/2011 Nsaids 03/30/2012 HISTORY OF ULCERS Penicillins Itching 10/14/2011 Sulfa Drugs Itching 10/14/2011 Medications * Be aware that medications may not be up to date on this document. Alwaysverify current medications with the patient. Medication Sig Dispensed Refills Start Date End Date Status carvedilol (COREG) 25 MG tablet 2 times daily. Active pravastatin (PRAVACHOL) 80 MG tablet Take 80 mg by mouth at bedtime. Active olmesartan-hydrochloro thiazide (BENICAR HCT) 40-12.5 MG tablet Take 1 Tab by mouth once daily. Active diazepam (VALIUM) 5 MG tablet Take 1 Tab by mouth 3 times daily as needed for Spasms. 30 Tab 1 04/25/2012 Active Ergocalciferol (VITAMIN D PO) Active pregabalin (LYRICA) 50 MG capsule Take 1 Cap by mouth 3 times daily. 90 Cap 5 03/15/2013 Active Active Problems Problem Noted Date Diagnosed Date Fibromyalgia 03/16/2013 Numbness of leg 12/16/2012 Arthrodesis status 12/02/2011 Chest pain 11/11/2011 Cervical spondylosis without myelopathy 11/02/19 12 Schwannoma of spinal cord 10/14/2011 Social History Tobacco Use Types Packs/Day Years Used Date Smoking Tobacco: Never Smokeless Tobacco: Never Tobacco Cessation:Counseling Given: Yes Alcohol Use Standard Drinks/Week Comments No 0 (1 standard drink = 0.6 oz pur e alcohol) Sex and Gender Information Value Date Recorded Sex Assigned at Not on file Gender Identity Not on file Sexual Orientation Not on file Last Filed Vital Signs Vital Sign Reading Time Taken Comments Blood Pressure 122/74 04/18/2012 1:43 PM CDT Pulse 68 04/18/2012 1:43 PM CDT Temperature 36.8 C (98.2 F) 04/10/2012 8:51 AM CDT Respiratory Rate 18 04/10/2012 8:51 AM CDT Oxygen Saturation 94% 04/10/2012 8:51 AM CDT Inhaled Oxygen Concentration 28% 11/11/2011 1 2:05 AM DISPATCHER SERVICE Weight 95.3 kg (210 lb) 03/15/2013 2:25 PM CDT Height 160 cm (5' 3 ) 03/15/2013 2:25 PM CDT Body Mass Index 37.2 03/15/2013 2:25 PM CDT Plan of Treatment Health Maintenance Due Date Last Done Comments COLOGUARD (AGES 45-75) - COL ON CA SCREENING 1964 COLON MONITORING 1964 COLONOSCOPY - COLON CA SCREENING 1964 CT COLONOGRAPHY - COLON CA SCREENING 1964 Colorectal Cancer Screening 1964 FIT - COLON CA SCREENING 1964 FLEX SIG - COLON CA SCREENING 1964 MAMMOGRAM 1964 MEDICARE AWV 12 MONTHS 1964 PAP SMEAR 1964 HIV SCREENING 1979 HEPATITIS C SCREENING 10/18/1982 DTAP/TDAP/TD VACCINES (1 - Tdap) 1983 PNEUMOCOCCAL VACCINE 50+ (1 of 1 - PCV) 2014 ZOSTER VACCINE (1 of 2) 2014 MEDICARE AWV CALENDAR YEAR 2023 COVID-19 VACCINE ( - 2023-2 5 season) 2024 DEPRESSION SCREENING 10/25/2024 INFLUENZA VACCINE (Season Ended) 2025 Respiratory Syncytial Virus (RSV) Vaccine Pt: or over 60 yrs (1 - 1-dose 75+ series) 2039 HEPATITIS B VACCINE Aged Out No longe r eligible based on patient's age to complete this topic HIB VACCINE Aged Out No longer eligi ble based on patient's age to complete this topic HPV VACCINE Aged Out No longer eligi ble based on patient's age to complete this topic MENINGOCOCCAL (Group B) VACC INE SHARED DECISION-MAKING Aged Out No longer eligibl e based on patient's age to complete this topic MENINGOCOCCAL GROUPS A/C/Y/W VACCINE Aged Out No longer eligible b ased on patient's age to complete this topic PNEUMOCOCCAL VACCINE Aged Out No long er eligible based on patient's age to complete this topic Advance Directives * FULL RESUSCITATION (Latest Code Status on File) Date Activated Date Inactivated Comments 04/05/2012 1:14 PM 04/11/2012 6:24 AM * FULL RESUSCITATION Date Activated Date Inactivated Comments 11/10/2011 2:31 PM 11/14/2011 7:32 AM Care Teams Educational Aide Relationship Specialty Start Date End Date Ragini Black APRN-TWILA [address] [address] [facility] - General 09/21/22 Sharif Marin MD Neurological Surgery 01/20/12
--- OUTSIDE RECORDS SUMMARY | 2025-01-29 11:12 | XMS_ITS | Clinical Summary ---
Author Organization [facility] Address [address] [place] [address] Care Team Providers Care Stem Crusher Name Role Phone Rodo Lea DO Primary Care Provider Allergies Active Allergy Reactions Criticality Noted Date Comments Ciprofloxacin Nausea and Vomiting Low 10/14/2011 Penicillins Itching Low 10/14/2011 Medications Ergocalciferol, Vitamin D2, Powder Active carvediloL (COREG) 25 mg tablet 2 times daily. Active olmesartan-hydr oCHLOROthiazide (BENICAR-HCT) 40-12.5 mg tablet Take 1 Tablet by mouth daily. Active pravastatin (PRAVACHOL) 80 mg tablet Take 80 mg by mouth. Active DULoxetine (CYMBALTA) 20 mg Capsule, Delayed Release(E.C.) Take 20 mg by mouth daily. Active alendronate (FOSAMAX) 70 mg tablet Take 70 mg by mouth every 7 days. empty stomach before other meds,with 8oz of water, stay upright 30 min Active losartan (COZAAR) 100 mg tablet Take 100 mg by mouth daily. Active cloNIDine (JZYKYUUH-YZY-3 ) 0.1 mg/24 hr patch Apply 1 Patch to skin as directed every 7 days. Active rosuvastatin (CRESTOR) 20 mg tablet Take 20 mg by mouth daily. Active cephALEXin (KEFLEX) 500 mg capsule Take 1 Capsule (500 mg) by mouth 4 times daily. 40 Capsule 08/31/2022 Active Active Problems Problem Noted Date Diagnosed Date Reactive thrombocytosis 08/03/2022 Encounters Date Type Department Care Team Description 01/29/2025 10:15 AM CDT Office Visit [facility] Oncology and Hematology - [address] [place] [id number] Vimal Booker MD Reactive thrombocytosis (Primary Dx) 01/23/2025 External Device Data STL ABSTRACTION Provider, Abstract 01/10/2025 External Device Data STL ABSTRACTION Provider, Abstract 01/02/2025 External Device Data STL ABSTRACTION Provider, Abstract 01/02/2025 External Device Data STL ABSTRACTION Provider, Abstract 01/01/2025 External Device Data STL ABSTRACTION Provider, Abstract 12/30/2024 External Device Data STL ABSTRACTION Provider, Abstract 12/29/2024 External Device Data STL ABSTRACTION Provider, Abstract 12/27/2024 External Device Data STL ABSTRACTION Provider, Abstract 12/12/2024 External Device Data STL ABSTRACTION Provider, Abstract 11/15/2024 External Device Data STL ABSTRACTION Provider, Abstract 11/15/2024 External Device Data STL ABSTRACTION Provider, Abstract 10/31/2024 External Device Data STL ABSTRACTION Provider, Abstract from Last 3 Months Social History Tobacco Use Types Packs/Day Years Used Date Smoking Tobacco: Never Smokeless Tobacco: Never Tobacco Cessation:Counseling Given: Not Answered Alcohol Use Standard Drinks/Week Comments Never 0 (1 standard drink = 0.6 oz pur e alcohol) Comments Unknown Sex and Gender Information Value Date Recorded Sex Assigned at Not on file Legal Sex Female 11:13 AM CDT Gender Identity Not on file Sexual Orientation Not on file Last Filed Vital Signs Vital Sign Reading Time Taken Comments Blood Pressure 122/79 01/29/2025 10:29 AM CDT Pulse 82 01/29/2025 10:29 AM CDT Temperature 35.8 C (96.4 F) 01/29/2025 10:29 AM CDT Respiratory Rate 16 01/29/2025 10:29 AM CDT Oxygen Saturation 94% 01/29/2025 10:29 AM CDT Inhaled Oxygen Concentration - - Weight 91.4 kg (201 lb 9.6 oz) 01/29/2025 10:29 AM CDT Height 157.5 cm (5' 2 ) 08/31/2022 8:41 AM STEREOTYPER HELPER Body Mass Index 36.87 08/31/2022 8:41 AM STEREOTYPER HELPER Plan of Treatment Upcoming Encounters Date Type Department Care Team (Late st Contact Info) Description 01/29/2026 10:00 AM CDT Office Visit [facility] Oncology and Hematology - [address] [facility] [address] [place] [address] Vimal Booker MD [address] [facility] [address] [place] [address] Health Maintenance Due Date Last Done Comments Pre-Diabetes and Diabetes Screening 1964 DTAP/TDAP/TD VACCINES (1 - Tdap) 1983 BREAST CANCER SCREENING 2004 COLORECTAL SCREENING 2009 Colorectal Cancer Screening 2009 FIT-DNA Q 3 years 2009 FIT/FOBT Q 1 year 2009 Flex Sig/CT Colonography Q 5 years 2009 ZOSTER VACCINE (1 of 2) 2014 INFLUENZA VACCINE (#1) 2024 [place] Preventative Visit/Annual Wellness Visit 10/25/2024 RSV VACCINE (60+ or ) (1 - 1-dose 75+ series) 2039 HEPATITIS B VACCINES Aged Out No long er eligible based on patient's age to complete this topic [facility] [address] [facility] Address: [facility] [address] [place] [id number] Care Teams Stem Crusher Relationship Specialty Start Date End Date Rodo Lea DO [address] [phone] PCP - General Internal Medicine 08/03/22
--- OUTSIDE RECORDS SUMMARY | 2025-01-29 11:12 | XMS_ITS | CONTINUITY OF CARE DOCUMENT ---
Author Name abdi patton Address Unknown Organization [facility] Address [address] [place] [address] [address] [place] [address] Phone [phone] Care Team Providers Care Plastic Process Technician Name Role Phone abdi patton Unavailable Unavailable INSURANCE PROVIDERS Payer name Policy type / Coverage type [place] red republican ID [id number] PAY [id number]
--- OUTSIDE RECORDS SUMMARY | 2025-01-29 11:12 | XMS_ITS | Encounter Summary ---
Author Organization [facility] Health Address [address] [place] [address] Care Team Providers Care Facing End Trimmer Name Role Phone Dustin Farfan MD Primary Care Provider [phone] Sharif Marin MD Unavailable [phone] Kamar New MD Primary Care Provider [phone] Ragini BlackSTEAM HOIST OPERATOR Primary Care Provider + -[phone] Encounter Details Date Type Department Care Team (Late st Contact Info) Description 05/02/2012 [facility] Outpatient Visit [facility] [address] [place] [address] Unknown, Provider Social History Tobacco Use Types Packs/Day Years Used Date Smoking Tobacco: Never Smokeless Tobacco: Never Alcohol Use Standard Drinks/Week Comments No 0 (1 standard drink = 0.6 oz pur e alcohol) Sex and Gender Information Value Date Recorded Sex Assigned at Not on file Gender Identity Not on file Sexual Orientation Not on file documented as of this encounter Plan of Treatment Not on file documented as of this encounter Visit Diagnoses Not on filedocumented in this encounter Care Teams Facing End Trimmer Relationship Specialty Start Date End Date Dustin Farfan MD [address] [place] [phone] PCP - General 10/23/11 08/04/21 Kamar New MD [address] [place], [place] [address], [place] [address] PCP - General 08/05/21 09/20/22 Ragini Black APRN-STEAM HOIST OPERATOR [address] [place] [address] [phone] PCP - General 09/21/22 Sharif Marin MD [address] [place] [phone] Neurological Surgery 01/20/12 documented as of this encounter
--- OUTSIDE RECORDS SUMMARY | 2025-01-29 11:12 | XMS_ITS | Encounter Summary ---
Author Organization [facility] Address [address] [place] [address] Care Team Providers Care Tetryl Nitrator Operator Name Role Phone Rodo Lea DO Primary Care Provider Encounter Details Date Type Department Care Team (Late st Contact Info) Description 01/29/2025 10:15 AM CDT Office Visit [facility] Oncology and Hematology - Jonathan [address] [facility] [address] [place] [address] Vimal Booker MD [address] [facility] [address] [place] [address] Reactive thrombocytosis (Primary Dx) Social History Tobacco Use Types Packs/Day Years [...] on file documented as of this encounter Last Filed Vital Signs Vital Sign Reading Time Taken Comments Blood Pressure 122/79 01/29/2025 10:29 AM CDT Pulse 82 01/29/2025 10:29 AM CDT Temperature 35.8 C (96.4 F) 01/29/2025 10:29 AM CDT Respiratory Rate 16 01/29/2025 10:29 AM CDT Oxygen Saturation 94% 01/29/2025 10:29 AM CDT Inhaled Oxygen Concentration - - Weight 91.4 kg (201 lb 9.6 oz) 01/29/2025 10:29 AM CDT Height - - Body Mass Index 36.87 08/31/2022 8:41 AM WEBSITE/BLOG EDITOR documented in this encounter Plan of Treatment Upcoming Encounters Date Type Department Care Team (Late st Contact Info) Description 01/29/2026 10:00 AM CDT Office Visit [facility] Oncology and Hematology [facility] [address] [facility] [address] [place] [phone] Vimal Booker MD [address] [facility] [address] [place] [phone] Scheduled Orders Name Type Priority Associated Diagnoses Orde r Schedule CBC WITH DIFFERENTIAL Lab Stat Reactive thrombocytosis Expected: 01/29/2025, Expires: 01/29/2026 BASIC METABOLIC PANEL Lab Stat Reactive thrombocytosis Expected: 01/29/2025, Expires: 01/29/2026 documented as of this encounter Visit Diagnoses Diagnosis Reactive thrombocytosis- Primary documented in this encounter Care Teams Tetryl Nitrator Operator Relationship Specialty Start Date End Date Rodo Lea DO [address] [facility] [address] [place] [address] PCP - General Internal Medicine 08/03/22 documented as of this encounter
== END 2025-01-29 09:53 | disposition home or self-care (01) ==
LOC: ANHLAB 09:53
PROVIDERS: PCP Internal Medicine; Visit Provider Internal Medicine Hematology & Oncology
DX: D75.838 Other thrombocytosis (principal)
CPT/HCPCS: 36415; 85025

== ENCOUNTER 2025-02-15 11:29 | Outpatient (CLI) | payer OTHER, SELFPAY ==
--- NOTE | ~2025-02-15 | XR_ITS ---
Supine and upright views of the abdomen Clinical history: Kidney stone COMPARISON: 05/29/2024 Findings: Bowel gas pattern is nonspecific. No evidence for obstruction or free air. No abnormal mass lesion or calcification is seen. Osseous structures are intact. Impression: No significant abnormality is seen. Reviewed, dictated and finalized at [facility]. Impression: No significant abnormality is seen.
== END 2025-02-15 11:30 | disposition home or self-care (01) ==
LOC: GOSHIMG 11:29
PROVIDERS: PCP Clinical Nurse Specialist; Visit Provider Clinical Nurse Specialist
DX: N20.0 Calculus of kidney (principal)
CPT/HCPCS: 74018

== ENCOUNTER 2025-06-18 13:44 | Outpatient (CLI) | payer OTHER, SELFPAY ==
--- OUTSIDE RECORDS SUMMARY | 2025-06-18 13:49 | XMS_ITS ---
Author Name BARBARA REID APRN Address [address] [place] [address] Phone [phone] Organization [facility] Care Team Providers Care Grain Trimmer Name Role Phone BARBARA REID Unavailable [phone] RADAMES LICEA Unavailable [phone] JULIANA ROMERO Unavailable [phone] Reason for Referral Not Available Allergies, adverse reactions, alerts Allergen Type Reaction Severity Status Onset Date Sulfa Allergy to substance (disorder) itching Unknown Active N/A Penicillin Allergy to substance (disorder) itching Unknown Active N/A Antihistamine Allergy to substance (disorder) physical anxiety Unknown Active N/A Sleep Aid Allergy to substance (disorder) physical anxiety Unknown Active N/A Neurontin Allergy to substance (disorder) facial rash Unknown Active N/A Lyrica Allergy to substance (disorder) anger Unknown Active N/A History of medication use Medication Class Instructions Start Date End Date Alendronate Sodium 70 mg Tab 1 tablet or ally weekly 30 minutes before the first food, beverage or medicine of the day with plain water 2025-02-20 No Data Available Diclofenac Sodium 1 % Gel 4 grams topica lly to affected area 4 times per day as needed 2025-02-20 No Data Available HYDROcodone-Acetaminophen 7.5/325 mg Tab twice a day as needed 2025-02-20 No Data Available oxyCODONE 10 mg Tab once a day for break through pain as needed 2025-02-20 No Data Available Carisoprodol 350 mg Tab One tablet twice a day as needed 2025-02-20 No Data Available vitamin d 5000 IU Two tablets once a week 2025-02-20 No Data Available Problem List Problem Status Onset Date Resolved Date Synopsis Hypertension Active 2025-02-20 N/A Stable on me ds Anxiety Inactive 2025-02-20 N/A Stable with me ds Hyperlipidemia Active 2025-02-20 N/A Stable wit h med Chronic pain Active 2025-02-20 N/A Sees pain ma nagement Unsteady gait Active 2025-02-20 N/A Uses a walk er Pelvic pain Active 2025-02-20 N/A Takes pain me ds and sees pain management Neck pain Inactive 2025-02-20 N/A Stable with ne ck injections Back pain Active 2025-02-20 N/A Takes oral caryn n meds and receives back injections Barretts esophagus Inactive 2025-02-20 N/A Stable with med Migraine Inactive 2025-02-20 N/A Stable with li festyle change and with cold black gel cap Thrombocytosis Active 2025-02-20 N/A Sees hemat ology Diabetes type 2 Inactive 2025-02-20 N/A Stable wi th low sugar diet, not currently on any med Obesity Active 2025-02-20 N/A Recommended lo w sugar, carb, fat diet. Weight loss of 2 - 2.5 lbs per week. Lichen sclerosus of female genitalia Active 2025-02-20 N/A Has appt with GY N on 02/22/25 for possible biopsy PTSD (post-traumatic stress disorder) Inactive 2025-02-20 N/A Stable with medi cation Encounters Encounters Type Facility Date of Service Diagnosis/Co mplaint Outpatient visit for evaluation and management of new patient, including medically appropriate examination and high level of medical decision making, total time 60-74 [facility] [place] 02/20/2025 Essential (primary) hypertensionHyperlipidemia, unspecifiedOther chronic painBarrett's esophagus without dysplasiaThrombocytosis, unspecifiedUnsteadiness on feetPelvic and perineal painDorsalgia, unspecifiedAnxiety disorder, unspecifiedCervicalgiaMigraine, unspecified, not intractable, without status migrainosusBody mass index (bmi) 36.0-36.9, adult Vital Signs Date of Collection Vitals 2025-02-20 11:15:00 Height - 157.48 cmWe ight - 90.27 kgBody Mass Index (BMI) - 36.4 kg/m2 Social History Sex Female History of Procedures Procedures Service Procedure code Service date Servicing provider Phone# Outpatient visit for evaluation and management of new patient, including medically appropriate examination and high level of medical decision making, total time 60-74 [address] 2025-02-20 No Data Available No Data Avail able Functional Status Functional Category Effective Dates Can perform ADLs, uses walker as needed 2025-02-20 Mental Status No Information Assessments Date of Service Assessments 2025-02-20 11:15:00 HypertensionHyperlip idemiaChronic painUnsteady gaitPelvic painBack painAnxietyNeck painBarretts esophagusMigraineThrombocytosis Plan of Care Date of Service Plans 2025-02-20 11:15:00 Stable on medsStable with medSees pain managementUses a walkerTakes pain meds and sees pain managementTakes oral pain meds and receives back injectionsStable with medsStable with neck injectionsStable with medStable with lifestyle change and with cold black gel capSees hematology Goals Date Goal 2025-02-20 Recommend low sugar, fat, carb diet, purchase foot pedal device for exercise 2025-02-20 Weight loss of 2 - 2 .5 lbs per week 2025-02-20 Recommend to setup a dvance directive 2025-02-20 Educated on controll ed meds and advised not to take Hydrocodones, Oxycodones, and Somas at the same time. Make sure respirations are at least 12 before taking controlled med. 2025-02-20 Recommend pickup Olivier can and have educated on how to use, in the event of an issue 2025-02-20 Recommend to schedul e mammogram Health Concerns Date Concern 2025-02-20 Healthy House Calls is a service that involves a physician or advanced practice provider conducting comprehensive assessments in your patient s home or virtually to address crucial areas such as chronic conditions, quality gaps, social concerns, fall risk prevention, and various screenings. Please note that your patient will remain attributed to you even though they are participating in this service. If you have any questions, please reach out directly to our team at the phone number above.Ca Jaramillo is a very pleasant 59 y/o (1965) was seen today for a Healthy House Call virtual video visit. Patient read rights and responsibilities and consented to treatment. The purpose of this summary is to update you on the patient's current health status and share any relevant findings from the examination. Mrs. Jaramillo looks well and shows no signs of acute distress. She is a very good historian of her health history, that she reports is accurate below. History is quite extensive which includes chronic pain. States is under the care of pain management. Does report she saw physical therapy in the past but it actually worsen her pain. Educated and advise to use extreme caution when taking Hydrocodones, Oxycodones, Somas, and muscle relaxers. Educated to make sure respirations are greater than 12 before taking controlled meds. Advised not to take all at the same time. Strongly encouraged to pick-up Narcan from the pharmacy and have educated on how to use. Mrs. Jaramillo reports complications with her Lichen sclerosus of the genitalia and states she has an appt on 02/22/25 with DIRECTOR BUSINESS DEVELOPMENT. Also sees Hematology for Thrombocytosis. Recommended to keep PCP uptodate on all treatment plans from specialist. 2025-02-20 Recommendations: 2025-02-20 Hypertension 2025-02-20 Hyperlipidemia 2025-02-20 Chronic pain 2025-02-20 Unsteady gait 2025-02-20 Pelvic pain 2025-02-20 Back pain 2025-02-20 Anxiety 2025-02-20 Neck pain 2025-02-20 Barretts esophagus 2025-02-20 Migraine 2025-02-20 Healthy House Calls is a service that involves a physician or advanced practice provider conducting comprehensive assessments in your patient s home or virtually to address crucial areas such as chronic conditions, quality gaps, social concerns, fall risk prevention, and various screenings. Please note that your patient will remain attributed to you even though they are participating in this service. If you have any questions, please reach out directly to our team at the phone number above.Your patient, [Patient full name], [], was seen today for a Healthy House Call visit. Patient read rights and responsibilities and consented to treatment. The purpose of this summary is to update you on the patient's current health status and share any relevant findings from the examination. 2025-02-20 Recommendations: 2025-02-20 Thrombocytosis
--- OUTSIDE RECORDS SUMMARY | 2025-06-18 13:49 | XMS_ITS | Clinical Summary ---
Author Organization [facility] [employer] Address [address] [facility] [place] [address] Care Team Providers Care Sole Molding Machine Operator Name Role Phone Sharif Marin MD Unavailable [phone] Ragini Black APRN-DEBARKER OPERATOR Primary Care Provider [phone] Source Comments [facility] [employer],non-owned Affiliates and Associated Physician Practices is amultiple site organization consisting of ambulatory clinics and hospital sitesin [place], [place], [place] and [place]. This disclosure is being madepursuant to the Care Everywhere program and may not contain all information available regarding this patient. Last updated 18.[facility] Allergies Active Allergy Reactions Criticality Noted Date Comments Ciprofloxacin Nausea and/or Vomiting 10/14/2011 Nsaids 03/30/2012 HISTORY OF ULCERS Penicillins Itching 10/14/2011 Sulfa Drugs Itching 10/14/2011 Medications * This document contains information received from the source organization and may not represent a complete record from that organization. * Be aware that medications may not be up to date on this document. Alwaysverify current medications with the patient. carvedilol (COREG) 25 MG tablet 2 times daily. Active pravastatin (PRAVACHOL) 80 MG tablet Take 80 mg by mouth at bedtime. Active olmesartan-hydro chlorothiazide (BENICAR HCT) 40-12.5 MG tablet Take 1 Tab by mouth once daily. Active diazepam (VALIUM) 5 MG tablet Take 1 Tab by mouth 3 times daily as needed for Spasms. 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 file Not on file Not on maynor e Last Filed Vital Signs Vital Sign Reading Time Taken Comments Blood Pressure 122/74 04/18/2012 1:43 PM CDT Pulse 68 04/18/2012 1:43 PM CDT Temperature 36.8 C (98.2 F) 04/10/2012 8:51 AM CDT Respiratory Rate 18 04/10/2012 8:51 AM CDT Oxygen Saturation 94% 04/10/2012 8:51 AM CDT Inhaled Oxygen Concentration 28% 11/11/2011 1 2:05 AM LIQUEFACTION PLANT OPERATOR Weight 95.3 kg (210 lb) 03/15/2013 2:25 PM CDT Height 160 cm (5' 3) 03/15/2013 2:25 PM CDT Body Mass Index [...] - COLON CA SCREENING 1965 MAMMOGRAM 1965 HIV SCREENING 1979 HEPATITIS C SCREENING 10/18/1982 DTAP/TDAP/TD VACCINES (1 - Tdap) 1983 PNEUMOCOCCAL VACCINE 50+ (1 of 1 - PCV) 2014 ZOSTER VACCINE (1 of 2) 2014 COVID-19 VACCINE (1 - 2023-2 5 season) 2024 DEPRESSION SCREENING 10/25/2024 INFLUENZA VACCINE (#1) 2025 Respiratory Syncytial Virus (RSV) Vaccine Pt: [...] patient's age to complete this topic Insurance [employer] [place] [address] [place] [id number] Advance Directives * FULL RESUSCITATION (Latest Code Status on File) Date Activated Date Inactivated Comments 04/05/2012 1:14 PM 04/11/2012 6:24 AM * FULL RESUSCITATION Date Activated Date Inactivated Comments 11/10/2011 2:31 PM 11/14/2011 7:32 AM Care Teams Sole Molding Machine Operator Relationship Specialty Start Date End Date Ragini Black APRN-DEBARKER OPERATOR [address] [phone] PCP - General 09/21/22 Sharif Marin MD Neurological Surgery 01/20/12
--- OUTSIDE RECORDS SUMMARY | 2025-06-18 13:49 | XMS_ITS | Clinical Summary ---
Author Organization [facility] agnieszka [facility] Address [address] [facility] [place] [place] [address] Care Team Providers Care Liquor Maker Name Role Phone Rodo Lea DO Primary [...] 100 mg by mouth daily. Active cloNIDine ([id number]-3 ) 0.1 mg/24 hr patch Apply 1 [...] Encounters Date Type Department Care Team Description 05/29/2025 External Device Data ST[facility] ABSTRACTION Provider, Abstract 04/17/2025 External Device Data ST[facility] ABSTRACTION Provider, Abstract 03/20/2025 External Device Data ST[facility] ABSTRACTION Provider, Abstract [...] 10:29 AM CDT Height 157.5 cm (5' 2) 08/31/2022 8:41 AM WOOD WINDOW AND DOOR CRAFTSMAN Body Mass Index 36.87 08/31/2022 8:41 AM WOOD WINDOW AND DOOR CRAFTSMAN Plan of Treatment Upcoming Encounters Date Type Department Care Team (Late st Contact Info) Description 01/29/2026 10:00 AM CDT Office Visit [facility] Oncology and Hematology - Jonathan [address] [facility] [address] [place] [address] Vimal Booker MD [address] [facility] [address] [place] [address] Health Maintenance Due Date Last Done Comments Pre-Diabetes and Diabetes Screening 1965 DTAP/TDAP/TD VACCINES (1 - Tdap) 1983 BREAST CANCER SCREENING 2004 COLORECTAL SCREENING 2009 Colorectal Cancer Screening 2009 FIT-DNA Q 3 years 2009 FIT/FOBT Q 1 year 2009 Flex Sig/CT Colonography Q 5 years 2009 ZOSTER VACCINE (1 of 2) 2014 INFLUENZA VACCINE (#1) 2025 RSV VACCINE (60+ or ) (1 - 1-dose 75+ series) 2039 HEPATITIS B VACCINES Aged Out No long er eligible based on patient's age to complete this topic Insurance [facility] JAVI NICOLE [address] [place] Care Teams Liquor Maker Relationship Specialty Start Date End Date Rodo Lea DO [address] [facility] [address] [place] [address] PCP - General Internal Medicine 08/03/22
--- OUTSIDE RECORDS SUMMARY | 2025-06-18 13:49 | XMS_ITS | Encounter Summary ---
Author Organization [facility] Health Address [address] [facility] [place] [address] Care Team Providers Care Hotel Guest Service Agent Name Role Phone Dustin Farfan MD Primary Care Provider [phone] Sharif Marin MD Unavailable [phone] Kamar New MD Primary Care Provider [phone] Ragini Black Primary Care Provider + [phone] Encounter Details Date Type Department Care Team (Late st Contact Info) Description 05/02/2012 [facility] Outpatient Visit [facility] [address] [place], [place] [id number] Unknown, Provider Social History Tobacco Use Types Packs/Day Years Used Date Smoking Tobacco: Never Smokeless Tobacco: Never Alcohol Use Standard Drinks/Week Comments No 0 (1 standard drink = 0.6 oz pur e alcohol) Comments No Sex and Gender Information Value Date Recorded Sex Assigned at Not on file Legal Sex Female 12:56 PM DIRECTORY OPERATOR Gender Identity Not on file Sexual Orientation Not on file 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 file Not on file Not on maynor e documented as of this encounter Plan of Treatment Not on file documented as of this encounter Visit Diagnoses Not on filedocumented in this encounter Care Teams Hotel Guest Service Agent Relationship Specialty Start Date End Date Dustin Farfan MD [address] [place] [phone] PCP - General 10/23/11 08/04/21 Kamar New MD [address] [address] PCP - General 08/05/21 09/20/22 Ragini Black APRN-DIRECTOR DIGITAL CATALOGUE [facility] [address] [address] PCP - General 09/21/22 Sharif Marin MD [address] [place] [phone] Neurological Surgery 01/20/12 documented as of this encounter
[2025-06-18 14:33] LABS: Hematocrit 46.7 % (37.0-47.0); Hemoglobin 14.6 g/dL (12.0-15.0); Immature Granulocyte Percent A 0.4 % (0-0.5); Lymphocytes Absolute Auto 2.72 K/mm3 (0.9-3.2); Mean Corpuscular HGB Conc 31.3 g/dl (32-36); Mean Corpuscular Hemoglobin 30.1 pg (26-34); Mean Corpuscular Volume 96.3 fl (80-100); Nucleated Red Blood Cells Absolute Auto 0.000 K/mm3 (0.0-0.012); Nucleated Red Blood Cells Perc 0.0 % (0.0-0.2); Platelet Count Result 419 k/mm3 (150-375); Red Blood Count 4.85 M/mm3 (4.2-5.4); White Blood Count 11.2 K/mm3 (4.5-10.0)
[2025-06-18 14:54] LABS: Hemoglobin A1C 6.1 % (<5.7)
[2025-06-18 15:17] LABS: Alanine Aminotransferase 26 U/L (6-35); Albumin Level 4.4 g/dL (3.5-5.1); Alkaline Phosphatase 71 U/L (38-126); Anion Gap 8 mmol/L (4-12); Aspartate Amino Transferase 32 U/L (14-36); Bilirubin,Total 0.9 mg/dL (0.2-1.3); Blood Urea Nitrogen 18 mg/dL (7-17); Calcium 9.5 mg/dL (8.4-10.2); Carbon Dioxide 28 mmol/L (22-30); Chloride 102 mmol/L (98-107); Cholesterol 198 mg/dL (0-200); Estimated Glomerular Filt Rate > 60; Glucose 98 mg/dL (65-110); HDL Direct 61 mg/dL; Sodium 138 mmol/L (137-145); Total Protein 8.1 g/dL (6.3-8.2); Triglycerides 113 mg/dL (<150)
[2025-06-18 15:24] LABS: Potassium 4.1 mmol/L (3.4-5.0)
== END 2025-06-18 13:45 | disposition home or self-care (01) ==
LOC: ANHGOSHLAB 13:45
PROVIDERS: PCP Nurse Practitioner; Visit Provider Nurse Practitioner
DX: E78.2 Mixed hyperlipidemia (principal); E11.9 Type 2 diabetes mellitus without complications; E55.9 Vitamin D deficiency, unspecified
CPT/HCPCS: 36415; 80053; 80061; 82306; 83036; 85025